=== PATIENT | female | born 1940 | race Caucasian/White ===

== ENCOUNTER → 2019-03-21 | Outpatient (CLI) | payer MEDICARE | END | disposition home or self-care (01) | LOC: RAH 10:59 | PROVIDERS: ATTEND Family Medicine | DX: E04.2 Nontoxic multinodular goiter (principal) | CPT/HCPCS: 76536 ==

== ENCOUNTER → 2020-03-30 | Outpatient (CLI) | payer MEDICARE | END | disposition home or self-care (01) | LOC: SHCH 08:35 | PROVIDERS: ATTEND Internal Medicine Cardiovascular Disease | DX: R55 Syncope and collapse (principal) | CPT/HCPCS: 93306; 93356 ==

== ENCOUNTER → 2020-04-06 | Outpatient (CLI) | payer MEDICARE ==
[~2020-04-06] MED LIST: REGADENOSON 0.4 MG/5 ML PF SYG IVP SCH
== END | disposition home or self-care (01) ==
LOC: SHCH 07:55
PROVIDERS: ATTEND Internal Medicine Cardiovascular Disease
DX: R55 Syncope and collapse (principal)
CPT/HCPCS: 78452; 93017; 96374; A9500 ×2; J2785

== ENCOUNTER → 2020-04-10 | Outpatient (CLI) | payer MEDICARE | END | disposition home or self-care (01) | LOC: RAH 10:59 | PROVIDERS: ATTEND Family Medicine | DX: E04.2 Nontoxic multinodular goiter (principal) | CPT/HCPCS: 76536 ==

== ENCOUNTER → 2020-04-27 | Outpatient (CLI) | payer MEDICARE ==
[2020-04-27 10:12] LABS: INR 0.94 (0.85-1.15); PARTIAL THROMBOPLASTIN TIME 28.1 SEC (26.3-35.5); PROTHROMBIN TIME 10.2 SEC (9.6-11.6)
--- NOTE | 2020-04-27 10:50 | NUR ---
US GUIDED FNA RIGHT THYROID NODULE PROCEDURE PERFORMED BY DR. UREÑA. PUNCTURE SITE RIGHT SIDE OF NECK. PATIENT TOLERATED PROCEDURE WELL. SPECIMEN X 4 COLLECTED BY LAB PERSONNEL, PETE. END OF PROCEDURE AT 1110. NEEDLE REMOVED AND DRESSING APPLIED. NO BLEEDING NOTED. DISCHARGE INSTRUCTIONS GIVEN TO PATIENT AND VERBALIZED UNDERSTANDING. DISCHARGED AMBULATORY. AAO X 3. NO C/O PAIN.
== END | disposition home or self-care (01) ==
LOC: RAH 09:02
PROVIDERS: ATTEND Family Medicine
DX: D44.0 Neoplasm of uncertain behavior of thyroid gland (principal); Z79.01 Long term (current) use of anticoagulants
CPT/HCPCS: 10005; 36415; 76942; 85610; 85730; 88173; 88305

== ENCOUNTER → 2021-04-30 | Outpatient (CLI) | payer MEDICARE | END | disposition home or self-care (01) | LOC: RAH 07:36 | PROVIDERS: ATTEND Family Medicine | DX: E04.2 Nontoxic multinodular goiter (principal) | CPT/HCPCS: 76536 ==

== ENCOUNTER → 2023-04-28 | Outpatient (CLI) | payer MEDICARE ==
[~2023-04-28] MED LIST changes: +ASPI-1012 PO; +IOHEXOL 350 MG/ML 100ML INFUS..BTL IV ONE; +LEVO750T68 PO; +METO-296 PO; +METR-172 PO; +METR375C2 PO; -REGADENOSON 0.4 MG/5 ML PF SYG IVP SCH
== END | disposition home or self-care (01) ==
LOC: RAH 10:00
PROVIDERS: ATTEND Family Medicine
DX: K57.30 Diverticulosis of large intestine without perforation or abscess without bleeding (principal); N28.1 Cyst of kidney, acquired; K59.00 Constipation, unspecified; D73.89 Other diseases of spleen; K76.89 Other specified diseases of liver; N32.89 Other specified disorders of bladder; M47.815 Spondylosis without myelopathy or radiculopathy, thoracolumbar region; Z96.641 Presence of right artificial hip joint
CPT/HCPCS: 74178; Q9967

== ENCOUNTER 2023-05-03 21:42 | Observation (INO) | payer MEDICARE ==
[~2023-05-03] VITALS: Ht 177.8 cm; Wt 92.5 kg
[2023-05-03] MEDS ORDERED: MORPHINE 4 MG SYG IVP ONE (22:30)
[2023-05-03] MEDS ORDERED: FAMOTIDINE 20MG VIAL IV ONE (22:30)
[2023-05-03] MEDS ORDERED: LACTATED RINGERS 1000ML 1,000 ML IV ONE (22:30)
[2023-05-03] MEDS ORDERED: METOCLOPRAMIDE 10 MG/2 ML VIAL IVP ONE (22:30)
[2023-05-03 22:42] LABS: BASOPHILS % (AUTO) 0.6 % (0.0-5.0); EOSINOPHILS % (AUTO) 5.4 % (0.0-8.0); LYMPHOCYTES % (AUTO) 10.1 % (21.0-51.0); MEAN CORPUSCULAR HEMOGLOBIN 33.1 pg (27.0-33.0); MEAN CORPUSCULAR VOLUME 103.4 fL (79-99); MONOCYTES % (AUTO) 6.9 % (3.0-13.0); NEUTROPHILS % (AUTO) 76.4 % (40.0-77.0); PLATELET COUNT (AUTO) 444 K/uL (130-400)
[2023-05-03 22:55] LABS: POTASSIUM 4.2 mmol/L (3.5-5.1)
[2023-05-03 23:01] LABS: ALBUMIN 3.3 g/dL (3.5-5.0); TOTAL PROTEIN, SERUM 6.6 g/dL (6.0-8.3)
[2023-05-03 23:15] LABS: APPEARANCE,URINE CLEAR (CLEAR); BILIRUBIN,URINE NEGATIVE (NEGATIVE); COLOR,URINE YELLOW (YELLOW); GLUCOSE, URINE (UA) NEGATIVE (NEGATIVE); KETONES,URINE NEGATIVE (NEGATIVE); LEUKOCYTE ESTERASE ,URINE 500 Leu/uL (NEGATIVE); NITRATE,URINE NEGATIVE (NEGATIVE); OCCULT BLOOD,URINE NEGATIVE (NEGATIVE); PH,URINE 7.5 (5.0-8.0); PROTEIN,URINE 20 mg/dL (NEGATIVE)
[2023-05-03 23:23] LABS: BACTERIA,URINE RARE /HPF (None Seen); MUCUS,URINE RARE LPF (None Seen); SQUAMOUS EPITHELIAL CELL,UR FEW /HPF (0-2); WBC,URINE >100 /HPF (0-1)
[2023-05-04] VITALS (7 sets, daily range): BP systolic 118–148; BP diastolic 55–74
[2023-05-04] MEDS ORDERED: ZOSYN 3.375GM +NS 50ML IVPB ONE
[2023-05-04] MEDS ORDERED: LACTATED RINGERS IV ONE
[2023-05-04] MEDS ORDERED: ONDANSETRON 4MG INJ IV PRN (01:30)
[2023-05-04] MEDS: ZOSYN 3.375GM +NS 50ML IVPB SCH ×3 (01:30→17:22)
[2023-05-04] MEDS ORDERED: LACTULOSE 20 GM/30 ML UDCUP PO PRN (01:30)
[2023-05-04] MEDS ORDERED: HYDRALAZINE 20MG/ML VIAL IV PRN (01:30)
[2023-05-04] MEDS ORDERED: GUAIFENESIN-DM 200/20 MG 10 ML PO PRN (01:30)
[2023-05-04] MEDS ORDERED: NITROGLYCERIN 0.4 MG SL TAB SL PRN (01:30)
[2023-05-04] MEDS: 0.9%NACL 50ML IV SCH ×3 (01:30→17:22)
[2023-05-04] MEDS ORDERED: MAG/ALUM/SIMETH 30 ML UDCUP PO PRN (01:30)
[2023-05-04] MEDS ORDERED: ACETAMINOPHEN 325 MG TAB PO PRN ×2 (01:30)
[2023-05-04] MEDS ORDERED: MORPHINE 4 MG SYG IM PRN (01:30)
[2023-05-04] MEDS: 0.9%NACL 1000ML 1,000 ML IV SCH ×3 (02:38→21:30)
[2023-05-04] MEDS ORDERED: ZOSYN 3.375GM+NS 50ML 50 ML IV SCH (05:00)
[2023-05-04] MEDS: FAMOTIDINE 20MG VIAL IV SCH ×2 (08:26→21:38)
[2023-05-04] MEDS: ENOXAPARIN SODIUM 40 MG/0.4 ML SYRINGE SQ SCH (08:27)
[2023-05-04 13:16] LABS: BASOPHILS % (AUTO) 0.8 % (0.0-5.0); EOSINOPHILS % (AUTO) 6.4 % (0.0-8.0); HEMATOCRIT 26.5 % (36-48); LYMPHOCYTES % (AUTO) 23.7 % (21.0-51.0); MEAN CORPUSCULAR HEMOGLOBIN 33.1 pg (27.0-33.0); MEAN CORPUSCULAR HGB CONC 31.3 g/dL (32.0-36.0); MEAN CORPUSCULAR VOLUME 105.6 fL (79-99); MONOCYTES % (AUTO) 9.1 % (3.0-13.0); NEUTROPHILS % (AUTO) 59.6 % (40.0-77.0); PLATELET COUNT (AUTO) 389 K/uL (130-400); RED BLOOD CELL COUNT(AUTO) 2.51 MIL/uL (4.00-5.50); RED CELL DISTRIBUTION WIDTH 16.1 % (11.0-15.5); WHITE BLOOD COUNT (AUTO) 7.7 K/uL (4.8-10.8)
[2023-05-04 13:25] LABS: HEMOGLOBIN A1C 5.7 % (4.0-6.0)
[2023-05-04 13:37] LABS: ALBUMIN 2.8 g/dL (3.5-5.0); CREATININE 1.1 mg/dL (0.5-1.5); POTASSIUM 4.1 mmol/L (3.5-5.1); TOTAL PROTEIN, SERUM 5.9 g/dL (6.0-8.3)
[2023-05-04] MEDS ORDERED: ASPI-1012 PO ×2 (14:42)
[2023-05-05] MEDS: ZOSYN 3.375GM +NS 50ML IVPB SCH ×3 (01:03→18:03)
[2023-05-05] MEDS: 0.9%NACL 50ML IV SCH ×3 (01:04→18:03)
[2023-05-05 02:24] VITALS: BP 140/70
[2023-05-05 04:39] LABS: BASOPHILS % (AUTO) 1.1 % (0.0-5.0); EOSINOPHILS % (AUTO) 7.5 % (0.0-8.0); HEMATOCRIT 25.4 % (36-48); LYMPHOCYTES % (AUTO) 25.9 % (21.0-51.0); MEAN CORPUSCULAR HEMOGLOBIN 33.1 pg (27.0-33.0); MEAN CORPUSCULAR HGB CONC 31.5 g/dL (32.0-36.0); MONOCYTES % (AUTO) 8.5 % (3.0-13.0); NEUTROPHILS % (AUTO) 56.5 % (40.0-77.0); PLATELET COUNT (AUTO) 370 K/uL (130-400); RED BLOOD CELL COUNT(AUTO) 2.42 MIL/uL (4.00-5.50); RED CELL DISTRIBUTION WIDTH 16.2 % (11.0-15.5); WHITE BLOOD COUNT (AUTO) 6.1 K/uL (4.8-10.8)
[2023-05-05 04:59] LABS: ALBUMIN 2.6 g/dL (3.5-5.0); CREATININE 1.2 mg/dL (0.5-1.5); MAGNESIUM 1.9 mg/dL (1.80-2.40); POTASSIUM 4.2 mmol/L (3.5-5.1); TOTAL PROTEIN, SERUM 5.6 g/dL (6.0-8.3)
[2023-05-05] MEDS: 0.9%NACL 1000ML 1,000 ML IV SCH ×2 (07:48→18:03)
[2023-05-05 07:50] VITALS: BP 135/75
[2023-05-05] MEDS: ENOXAPARIN SODIUM 40 MG/0.4 ML SYRINGE SQ SCH (08:46)
[2023-05-05] MEDS: FAMOTIDINE 20MG VIAL IV SCH ×2 (08:46→20:26)
[2023-05-05 11:45] VITALS: BP 151/70
[2023-05-05 16:31] VITALS: BP 152/76
[2023-05-05 19:26] VITALS: BP 152/71
[2023-05-05 22:05] VITALS: BP 151/70
[2023-05-06] MEDS: ZOSYN 3.375GM +NS 50ML IVPB SCH ×2 (01:16→08:55)
[2023-05-06] MEDS: 0.9%NACL 50ML IV SCH ×2 (01:16→08:55)
[2023-05-06 02:28] VITALS: BP 140/66
[2023-05-06] MEDS: 0.9%NACL 1000ML 1,000 ML IV SCH (04:08)
[2023-05-06 04:42] LABS: BASOPHILS % (AUTO) 0.8 % (0.0-5.0); EOSINOPHILS % (AUTO) 7.3 % (0.0-8.0); HEMATOCRIT 25.4 % (36-48); LYMPHOCYTES % (AUTO) 19.7 % (21.0-51.0); MEAN CORPUSCULAR HEMOGLOBIN 32.9 pg (27.0-33.0); MEAN CORPUSCULAR HGB CONC 31.5 g/dL (32.0-36.0); MEAN CORPUSCULAR VOLUME 104.5 fL (79-99); MONOCYTES % (AUTO) 9.9 % (3.0-13.0); PLATELET COUNT (AUTO) 373 K/uL (130-400); RED BLOOD CELL COUNT(AUTO) 2.43 MIL/uL (4.00-5.50); RED CELL DISTRIBUTION WIDTH 15.7 % (11.0-15.5); WHITE BLOOD COUNT (AUTO) 6.3 K/uL (4.8-10.8)
[2023-05-06 04:56] LABS: ALBUMIN 2.7 g/dL (3.5-5.0); CREATININE 1.1 mg/dL (0.5-1.5); POTASSIUM 4.3 mmol/L (3.5-5.1); TOTAL PROTEIN, SERUM 5.6 g/dL (6.0-8.3)
[2023-05-06 07:46] VITALS: BP 143/65
[2023-05-06] MEDS: FAMOTIDINE 20MG VIAL IV SCH (08:55)
[2023-05-06] MEDS: ENOXAPARIN SODIUM 40 MG/0.4 ML SYRINGE SQ SCH (08:56)
[2023-05-06] MEDS ORDERED: LEVO750T68 PO ×2 (11:20)
[2023-05-06] MEDS ORDERED: METR375C2 PO ×2 (11:21)
[2023-05-06 11:42] VITALS: BP 130/54
== END 2023-05-06 14:20 | disposition home or self-care (01) ==
LOC: EDH 21:42 → EDHIP 05-04 01:08 → WSH 05-04 03:38
PROVIDERS: ADMIT Internal Medicine Critical Care Medicine; ATTEND Internal Medicine Critical Care Medicine
DX: A41.9 Sepsis, unspecified organism (principal); K57.92 Diverticulitis of intestine, part unspecified, without perforation or abscess without bleeding; N39.0 Urinary tract infection, site not specified; I25.10 Atherosclerotic heart disease of native coronary artery without angina pectoris; Z87.442 Personal history of urinary calculi; Z90.710 Acquired absence of both cervix and uterus; Z96.643 Presence of artificial hip joint, bilateral; Z79.899 Other long term (current) drug therapy; Z98.890 Other specified postprocedural states
CPT/HCPCS: 96361 ×4; 96375; 99285; 84484 ×2; 80053 ×4; 83690; 85025 ×4; 87088; 81001; 36415 ×4; 74176; 93005; 96376 ×3; 96372 ×3; 96365; 96366 ×3; 83036; 83735 ×3; 87040 ×2; 71045; 93306; 93356; 84145; 76770; J7120 ×2; J3490 ×6; J2270; J2765; G0378 ×59; J7030 ×2; J2543 ×8; J1650 ×3

== ENCOUNTER 2023-05-09 07:19 | Emergency (ER) | payer MEDICARE ==
[~2023-05-09] VITALS: Ht 177.8 cm; Wt 94.3 kg
[~2023-05-09 07:19] MED LIST changes: -IOHEXOL 350 MG/ML 100ML INFUS..BTL IV ONE; -METO-296 PO; -METR-172 PO
[2023-05-09 08:27] LABS: BASOPHILS % (AUTO) 0.5 % (0.0-5.0); HEMATOCRIT 28.4 % (36-48); LYMPHOCYTES % (AUTO) 10.1 % (21.0-51.0); MEAN CORPUSCULAR HEMOGLOBIN 32.5 pg (27.0-33.0); MEAN CORPUSCULAR HGB CONC 32.4 g/dL (32.0-36.0); MEAN CORPUSCULAR VOLUME 100.4 fL (79-99); NEUTROPHILS % (AUTO) 74.9 % (40.0-77.0); PLATELET COUNT (AUTO) 444 K/uL (130-400); RED BLOOD CELL COUNT(AUTO) 2.83 MIL/uL (4.00-5.50); WHITE BLOOD COUNT (AUTO) 8.4 K/uL (4.8-10.8)
[2023-05-09] MEDS ORDERED: MORPHINE 4 MG SYG IVP ONE (08:30)
[2023-05-09] MEDS ORDERED: 0.9%NACL 1000ML 1,000 ML IV ONE (08:30)
[2023-05-09] MEDS ORDERED: FAMOTIDINE 20MG VIAL IV ONE (08:30)
[2023-05-09] MEDS ORDERED: METOCLOPRAMIDE 10 MG/2 ML VIAL IVP ONE (08:30)
[2023-05-09 08:40] LABS: CARBON DIOXIDE 25 mmol/L (21-32); CHLORIDE 106 mmol/L (101-111); CREATININE 1.1 mg/dL (0.5-1.5); GLOMERULAR FILTR. RATE CALC 49 mL/min (>90); GLUCOSE,RANDOM 106 mg/dL (70-105); POTASSIUM 3.8 mmol/L (3.5-5.1); SODIUM SERUM 140 mmol/L (136-145); UREA NITROGEN, BLOOD 8 mg/dL (7-18)
[2023-05-09 08:45] LABS: ALANINE AMINOTRANSFERASE 33 U/L (12-78); ASPARTATE AMINOTRANSFERASE 31 U/L (10-37); TOTAL PROTEIN, SERUM 6.1 g/dL (6.0-8.3)
[2023-05-09 08:46] LABS: LIPASE < 50 U/L (114-286)
[2023-05-09 08:56] LABS: APPEARANCE,URINE CLEAR (CLEAR); BILIRUBIN,URINE NEGATIVE (NEGATIVE); COLOR,URINE YELLOW (YELLOW); GLUCOSE, URINE (UA) NEGATIVE (NEGATIVE); KETONES,URINE NEGATIVE (NEGATIVE); LEUKOCYTE ESTERASE ,URINE 25 Leu/uL (NEGATIVE); NITRATE,URINE NEGATIVE (NEGATIVE); OCCULT BLOOD,URINE NEGATIVE (NEGATIVE); PROTEIN,URINE NEGATIVE (NEGATIVE); UROBILINOGEN,URINE 0.2 mg/dL (0.2-1.0)
[2023-05-09 09:14] LABS: MUCUS,URINE RARE LPF (None Seen); RBC,URINE 0-1 /HPF (0-1); SQUAMOUS EPITHELIAL CELL,UR RARE /HPF (0-2); WBC,URINE 0-1 /HPF (0-1)
[2023-05-09] MEDS ORDERED: IOHEXOL 350 MG/ML 100ML INFUS..BTL IV ONE (09:29)
[2023-05-09] MEDS ORDERED: METO-296 PO (11:37)
[2023-05-09] MEDS ORDERED: METR-172 PO (11:37)
[2023-05-09 11:50] VITALS: BP 143/61
[2023-05-09] MEDS ORDERED: METRONIDAZOLE 500 MG TABLET PO SCH (12:00)
== END 2023-05-09 11:56 | disposition home or self-care (01) ==
LOC: EDH 07:19
DX: K52.9 Noninfective gastroenteritis and colitis, unspecified (principal); M19.90 Unspecified osteoarthritis, unspecified site; Z79.82 Long term (current) use of aspirin; Z88.1 Allergy status to other antibiotic agents; Z90.49 Acquired absence of other specified parts of digestive tract; Z90.722 Acquired absence of ovaries, bilateral
CPT/HCPCS: 99285; 74178; 96374; 71045; 96361; 96375; 84484; 80053; 83690; 85025; 81001; 36415; 93005; J3490; J7030; J2765; Q9967

== ENCOUNTER → 2024-02-28 | Outpatient (CLI) | payer MEDICARE ==
[~2024-02-28] MED LIST changes: +ACET-2743 PO; -ASPI-1012 PO; +LACT1CAP69 PO; -LEVO750T68 PO; +MECO10005 PO; +MELO10CA3 PO; -METR375C2 PO; +MULT-1258 PO; +POLY17PO4 PO; +SENN-309 PO
== END | disposition home or self-care (01) ==
LOC: SHCH 10:57
PROVIDERS: ATTEND Internal Medicine Cardiovascular Disease
DX: I51.7 Cardiomegaly (principal); R01.0 Benign and innocent cardiac murmurs; R42 Dizziness and giddiness
CPT/HCPCS: 93306

== ENCOUNTER 2024-11-04 13:25 | Inpatient (IN) | payer MEDICARE ==
[~2024-11-04] VITALS: Ht 177.8 cm; Wt 93.9 kg
--- NOTE | 2024-11-04 14:02 | ERN ---
General Chief Complaint: Abnormal Labs Stated Complaint: ABN LABS D-DIMER ELEVATED Time Seen by MD: 13:27 History of Present Illness Initial Comments 84-year-old female presents to the ED for evaluation of abnormal labs. Patient was sent to the ED by heart clinic Dr. Lima after having labs done which showed elevated D-dimer. Patient denies any chest pain or shortness a breath at this time. Allergies: Coded Allergies: clindamycin (Unverified Allergy, Unknown, 04/03/20) indomethacin (Unverified Allergy, Unknown, 04/27/20) Home Meds No Active Prescriptions or Reported Meds Past Medical History Past Medical History: Anemia, Arthritis, Heart Disease Medical History Other: PROLAPSE UTERUS AND BLADDER, SPINAL STENOSIS Past Surgical History: Other Surgical History Other: OORPHERECTOMY, BILATERAL KNEE REPLACEMENT,R HIP REPLACEMENT Family History Family History: Negative Social History Social History: Negative, Lives with family ROS Dictation Constitutional: Negative for fever,chills, and weight loss Eyes: Negative for injury, pain,redness, and discharge ENT: Negative for injury,pain or swelling Cardiovascular: Negative for chest pain, palpitations, and edema Respiratory: Negative for shortness of breath, cough, and wheezing, Abdomen/GI: Negative for abdominal pain, nausea, vomiting, diarrhea, and constipation Back: Negative for injury and pain : Negative for injury, bleeding and discharge MS/Extremity: Negative for injury and deformity Skin: Negative for rash, and discoloration Neuro: Negative for headache, weakness, numbness, tingling, and seizure Psych: Negative for suicide ideation, homicidal ideation, and hallucinations Physical Exam Physical Exam Dictation General: awake, alert, NAD Head/Face: Normocephalic, atraumatic Eyes: PERRL, EOMI, vision at baseline ENT: oral cavity clear, TMs clear, no signs of infection Neck: Trachea midline, supple, no nuchal rigidity Cardiovascular: RRR, normal S1/S2, No MRGs, no JVD Respiratory: CTAB, no respiratory distress, No rales or wheezes Abdomen: Soft, non-tender, non-distended, normal bowel sounds, no guarding or rebound. Skin: Warm, dry, normal turgor, no rash MS/Extremity: Pulses equal, no cyanosis, neurovascular intact, FROM Neuro: COAx4, GCS 15, strength 5/5, CN 2-12 intact, normal cerebellar exam, normal gait, Psych: Normal behavior, mood, and affect normal Results Laboratory and Microbiology Lab and Micro Result Laboratory Tests Test 11/04/24 13:54 White Blood Count 6.0 K/uL (4.8-10.8) Red Blood Count 2.03 MIL/uL (4.00-5.50) L Hemoglobin 6.4 g/dL (12.0-16.0) *L Hematocrit 20.7 % (36-48) *L Mean Corpuscular Volume 102.0 fL (79-99) H Mean Corpuscular Hemoglobin 31.5 pg (27.0-33.0) Mean Corpuscular Hemoglobin Concent 30.9 g/dL (32.0-36.0) L Red Cell Distribution Width 22.6 % (11.0-15.5) H Platelet Count 541 K/uL (130-400) H Mean Platelet Volume 12.5 fL (7.5-10.5) H Immature Granulocyte % (Auto) 2.0 % (0-1) H Neutrophils (%) (Auto) 51.1 % (40.0-77.0) Lymphocytes (%) (Auto) 29.6 % (21.0-51.0) Monocytes (%) (Auto) 10.6 % (3.0-13.0) Eosinophils (%) (Auto) 6.0 % (0.0-8.0) Basophils (%) (Auto) 0.7 % (0.0-5.0) Neutrophils # (Auto) 3.1 K/uL (1.8-7.7) Lymphocytes # (Auto) 1.8 K/uL (1.0-4.8) Monocytes # (Auto) 0.6 K/uL (0.1-1.0) Eosinophils # (Auto) 0.36 K/uL (0.00-0.70) Basophils # (Auto) 0.04 K/uL (0.00-0.20) Absolute Immature Granulocyte (auto 0.12 K/uL (0-1) Nucleated Red Blood Cells 0.7 % (0.0-0.19) H Red Blood Cell Morphology See comments D-Dimer Quantitative (PE/DVT) 1048 ng/mL (0-500) *H Sodium Level 143 mmol/L (136-145) Potassium Level 4.2 mmol/L (3.5-5.1) Chloride Level 105 mmol/L (101-111) Carbon Dioxide Level 29 mmol/L (21-32) Blood Urea Nitrogen 23 mg/dL (7-18) H Creatinine 1.5 mg/dL (0.5-1.0) H Glomerular Filtration Rate Calc 34 mL/min (>90) Random Glucose 153 mg/dL (70-105) H Total Calcium 9.0 mg/dL (8.5-10.1) Labs Reviewed?: Yes EKG/XRAY/US/CT/MRI X-RAY Comment REASON: SOB ORDERING PHYSICIAN: SHALONDA EVANS MD PROCEDURE: CXR1VW - CHEST 1VW CHEST 1VW HISTORY: Shortness of breath COMPARISON: 09/21/2024 FINDINGS: A frontal projection of the chest was obtained. There are bilateral pulmonary infiltrates suggestive of pulmonary vascular congestion with possible superimposed pneumonitis. The heart is borderline enlarged. Degenerative changes are seen. Tortuosity of the aorta is seen. IMPRESSION: 1. Bilateral pulmonary infiltrates are seen suggestive of pulmonary vascular congestion with possible superimposed pneumonitis. DICTATED BY: CROW JEAN MD DATE: 11/04/241424 CT Scan Comment PATIENT: CHITRA PUGA MR#: [id number] : 1940 SEX: F AGE: 84 LOCATION: [facility] ORDER 53 STATUS: [facility] REPORT#: [id number] SERVICE 145 REASON: elevated ddimer ORDERING PHYSICIAN: SHALONDA EVANS MD PROCEDURE: CHES PE - CT CHEST PE PROTOCOL WWO CONT CT CHEST PE PROTOCOL WWO CONT HISTORY: Elevated d-dimer COMPARISON: 12/06/2023 TECHNIQUE: CT angiography of the chest was performed. The study was performed using angiographic technique with maximum intensity projection reconstruction images. Patient was given 100 cc of Omnipaque through intravenous route. FINDINGS: No CT evidence of filling defect is seen to suggest pulmonary embolus. No CT evidence of aortic dissection is seen. There is mild interstitial fibrosis. There is soft tissue filling defect noted within the ascending thoracic aorta measuring 2 cm x 1.5 cm posteriorly immediately below the aortic arch. Differential diagnosis would include thrombus with mass lesion not completely excluded. Clinical correlation is recommended. This was not definitely seen on previous study. No evidence of parenchymal disease is seen. No CT evidence of pleural effusion or pericardial effusion is seen. The heart is enlarged. A small hiatal hernia is seen. No evidence of adrenal mass is seen. Degenerative changes of the spine are noted. IMPRESSION: 1. No CT evidence of acute pulmonary embolus or aortic dissection is seen. There is soft tissue filling defect noted within the ascending thoracic aorta measuring 2 cm x 1.5 cm posteriorly immediately below the aortic arch. Differential diagnosis would include thrombus with mass lesion not completely excluded. Clinical correlation is recommended. This was not definitely seen on previous study. CT was performed with one or more following dose reduction techniques: automated exposure control, adjustment of the mA and kv according to patient's size, or use of a iterative reconstruction technique. DICTATED BY: CROW JEAN MD DATE: 11/04/241848 ELECTRONICALLY SIGNED BY: CROW JEAN MD DATE: 11/04/241899 [facility] MDM: Differential diagnosis: Elevated D-dimer, PE, NSTEMI 1899-patient care is being transferred to Dr. Reynolds Previous outside records reviewed: Old ER visits. Need for hospitalization: Patient does meet criteria for hospitalization. Need for emergency major/minor surgery: No Patient's prior external medical records from other ER visits were reviewed by me as indicated. Prior testing and results from previous visits were reviewed. Prior tests were taken into account with medical decision making and resource utilization, independent historian/historians were used to obtain complete medical history. I independently interpreted the test that were performed, results were reviewed by me and considered findings on radiology if ordered. Medical management and examination interpretation discussions were had by me with other qualified healthcare professionals as indicated for the patient's care. ED Course Orders Procedure Category Date Status Time 12 Lead Ekg Tracing- EKG 11/04/24 Complete Technical 13:39 Chest 1vw RAD 11/04/24 Resulted 13:39 D-Dimer LAB 11/04/24 Complete 13:39 Cbc With Differential LAB 11/04/24 Complete 13:39 Basic Metabolic Panel LAB 11/04/24 Complete 13:39 Type And Screen BBK 11/04/24 Complete 14:53 Occult Blood Stool LAB 11/04/24 Logged Single Only 14:54 Ct Chest Pe Protocol CT 11/04/24 Resulted Wwo Cont 14:53 0.9% Nacl 500ml PHA 11/04/24 In Process Iv.Soln (Ns 500ml 18:30 Iohexol (Omnipaque) PHA 11/04/24 Complete 18:29 Current Medications Medications (Trade) Dose Ordered Sig/Hang Route PRN Reason Start Time Stop Time Status Last Admin Dose Admin Iohexol (Omnipaque) 35,000 mg STK-MED ONCE IV 11/04/24 18:29 11/04/24 18:30 DC Sodium Chloride 500 ml @ 0 mls/hr Q0M IV 11/04/24 18:30 12/04/24 18:29 11/04/24 18:24 Vital Signs Date Time Temp Pulse Resp B/P (MAP) Pulse Ox O2 Delivery O2 Flow Rate FiO2 11/04/24 18:00 85 16 157/71 94 Room Air* 0 21 11/04/24 16:50 97.9 91 16 152/73 98 Room Air* 0 21 11/04/24 13:26 99.7 85 16 139/46 94 Room Air 0 7:00 p.m. patient is signed out to me by a.m. physician this is an 84-year-old female who was instructed to come to the emergency room from the [facility] as her labs revealed markedly abnormal D-dimer is a. Apparently patient began complaining of chest pain after she received iron infusions for severe anemia. During the workup incidental finding of increased D-dimer is a warranted further evaluation. She denied any shortness of breath. Vital signs as a bowel with a temperature of 99.7 Her chronic medical problems include anemia coronary artery disease, spinal stenosis Labs revealed a hemoglobin of 6.4 hematocrit of 20.7 BNP 7 showed a BUN and creatinine of 23 and 1.5. D-dimer is were 1048. After hydration a CT scan of the chest with PE protocol was done which was negative for pulmonary embolus however there was a soft tissue density noted in the aorta Recommend admission to the hospital for further evaluation including an echocardiogram and possibly ROSSI to better evaluate the intra-aortic density which could be a thrombus or a mass HEART Score Response (Comments) Value History: Moderate suspicion (+1) 1 Age: > 65yrs (+2) 2 Risk Factors: 1-2 risk factors (+1) 1 Initial Troponin: Normal limit (0) 0 HEART Score Risk: Mod Risk for MACE (4-6) Total 4 DX & DISP Disposition: Inpatient Decision to Admit Date: Nov 04, 2024 Decision to Admit Time: 19:19 Departure Impression: Primary Impression: Chest pain Additional Impressions: Thrombus of aorta, Severe anemia, Coronary artery disease Condition: Stable Scripts No Active Prescriptions or Reported Meds Additional Instructions: Patient was informed of all the diagnostic labs and procedures conducted in the emergency room today and demonstrated understanding of the results. I personally reviewed and interpreted all the diagnostic exams performed in the ER today. The patient will be admitted to the hospital for further treatment and evaluation. Disposition-admit to facility Condition-stable/guarded Course-uncertain at this time Pain status-decreased Assessment-exam unchanged Admission Certification- I certify that the patients status is appropriate and is based on my best clinical judgment and the patient's condition as documented in the medical records Referrals: ARTURO NGUYEN MD (PCP) SHALONDA EVANS MD Nov 04, 2024 14:02 LEBRON REYNOLDS MD Nov 04, 2024 19:24
[2024-11-04 14:04] LABS: BASOPHILS # (AUTO) 0.04 K/uL (0.00-0.20); BASOPHILS % (AUTO) 0.7 % (0.0-5.0); EOSINOPHILS # (AUTO) 0.36 K/uL (0.00-0.70); IMMATURE GRANULOCYTE ABSOLUTE 0.12 K/uL (0-1); LYMPHOCYTES # (AUTO) 1.8 K/uL (1.0-4.8); LYMPHOCYTES % (AUTO) 29.6 % (21.0-51.0); MEAN CORPUSCULAR HEMOGLOBIN 31.5 pg (27.0-33.0); MEAN CORPUSCULAR HGB CONC 30.9 g/dL (32.0-36.0); MONOCYTES # (AUTO) 0.6 K/uL (0.1-1.0); MONOCYTES % (AUTO) 10.6 % (3.0-13.0); NEUTROPHILS # (AUTO) 3.1 K/uL (1.8-7.7); NEUTROPHILS % (AUTO) 51.1 % (40.0-77.0); NUCLEATED RED BLOOD CELLS 0.7 % (0.0-0.19); PLATELET COUNT (AUTO) 541 K/uL (130-400); RED BLOOD CELL COUNT(AUTO) 2.03 MIL/uL (4.00-5.50); RED CELL DISTRIBUTION WIDTH 22.6 % (11.0-15.5)
[2024-11-04 14:15] LABS: HEMATOCRIT 20.7 % (36-48)
[2024-11-04 14:19] LABS: CREATININE 1.5 mg/dL (0.5-1.0); POTASSIUM 4.2 mmol/L (3.5-5.1)
--- NOTE | 2024-11-04 14:28 | HMCIMG ---
CHEST 1VW HISTORY: Shortness of breath COMPARISON: 09/21/2024 FINDINGS: A frontal projection of the chest was obtained. There are bilateral pulmonary infiltrates suggestive of pulmonary vascular congestion with possible superimposed pneumonitis. The heart is borderline enlarged. Degenerative changes are seen. Tortuosity of the aorta is seen. IMPRESSION: 1. Bilateral pulmonary infiltrates are seen suggestive of pulmonary vascular congestion with possible superimposed pneumonitis.
--- NOTE | 2024-11-04 15:42 | EKG ---
[facility] Test Date: 2024-11-04 Test Time: 13:34:08 Pat Name: CHITRA PUGA Department: [facility] Room: ED Gender: F Multimedia Assistant: [id number] : 1940 Requested By: SHALONDA EVANS Order Number: [id number] Reading MD: Rey Givens Measurements Intervals [place] Rate: 83 P: 19 WI: 169 QRS: -2 QRSD: 77 T: 45 QT: 378 QTc: 444 Interpretive Statements Sinus rhythm Compared to ECG 12/06/2023 03:47:41 No significant changes Electronically Signed On 11-04-2024 21:10:51 STEEL LOADER by Rey Givens Please click the below link to view image of tracing.
--- NOTE | 2024-11-04 18:22 | NUR ---
LABS REPORTED TO MD NATHAN MD; CT CONFIRMED, ORDERED 500ML BOLUS
[2024-11-04] MEDS: 0.9% NACL 500ML IV.SOLN 500 ML IV SCH (18:24)
[2024-11-04] MEDS ORDERED: IOHEXOL 350 MG/ML 100ML INFUS..BTL IV ONE (18:29)
--- NOTE | 2024-11-04 19:00 | HMCIMG ---
CT CHEST PE PROTOCOL WWO CONT HISTORY: Elevated d-dimer COMPARISON: 12/06/2023 TECHNIQUE: CT angiography of the chest was performed. The study was performed using angiographic technique with maximum intensity projection reconstruction images. Patient was given 100 cc of Omnipaque through intravenous route. FINDINGS: No CT evidence of filling defect is seen to suggest pulmonary embolus. No CT evidence of aortic dissection is seen. There is mild interstitial fibrosis. There is soft tissue filling defect noted within the ascending thoracic aorta measuring 2 cm x 1.5 cm posteriorly immediately below the aortic arch. Differential diagnosis would include thrombus with mass lesion not completely excluded. Clinical correlation is recommended. This was not definitely seen on previous study. No evidence of parenchymal disease is seen. No CT evidence of pleural effusion or pericardial effusion is seen. The heart is enlarged. A small hiatal hernia is seen. No evidence of adrenal mass is seen. Degenerative changes of the spine are noted. IMPRESSION: 1. No CT evidence of acute pulmonary embolus or aortic dissection is seen. There is soft tissue filling defect noted within the ascending thoracic aorta measuring 2 cm x 1.5 cm posteriorly immediately below the aortic arch. Differential diagnosis would include thrombus with mass lesion not completely excluded. Clinical correlation is recommended. This was not definitely seen on previous study. CT was performed with one or more following dose reduction techniques: automated exposure control, adjustment of the mA and kv according to patient's size, or use of a iterative reconstruction technique.
--- NOTE | 2024-11-04 19:00 | NUR ---
DURING CHANGE OF SHIFT. REPORT RECEIVED THAT PATIENT WAS NOT CONSENTING TO BLOOD TRANSFUSIONS AT THIS TIME UNTIL DR. PRESCOTT WAS MADE AWARE AND ADVISED PATIENT THAT A BLOOD TRANSFUSION WAS ADEQUATE TO HER PLAN OF CARE. DR. PRESCOTT IS PATIENT'S ONCOLOGIST THAT MANAGES HER ANEMIA OUTPATIENT. PATIENT IS ASYMPTOMATIC AT THIS TIME. VITAL SIGNS WITHIN LIMITS. PENDING ONCOLOGY CONSULT AT THIS TIME.
[2024-11-04] MEDS ORDERED: PoTASSium chloRIDE 20MEQ ER 20 MEQ ERTAB PO PRN (20:30)
[2024-11-04] MEDS ORDERED: MAGNESIUM 2GM PREMIX 50ML 50 ML IV PRN (20:30)
[2024-11-04] MEDS ORDERED: NITROGLYCERIN 0.4 MG SL TAB SL PRN (20:30)
[2024-11-04] MEDS ORDERED: ondanSETRON 4MG INJ IV PRN (20:30)
[2024-11-04] MEDS ORDERED: polyETHYLene GLYCol 3350 17 GM POWD.PACK PO PRN (20:30)
[2024-11-04] MEDS ORDERED: PoTASSium chloRIDE 20MEQ/100ML 100 ML IV PRN ×2 (20:30)
[2024-11-04] MEDS ORDERED: PoTASSium chl 10% ELIXIR 20MEQ 20 MEQ/15 ML UDCUP PO PRN (20:30)
[2024-11-04] MEDS ORDERED: acetaMINOPHEN 325 MG TAB PO PRN ×2 (20:30)
[2024-11-04] MEDS ORDERED: doCUSate SODIUM 100 MG CAP PO PRN (20:30)
[2024-11-04] MEDS: INSULIN humuLIN R 100 UNIT/ML 3ML SQ SCH (21:00)
--- NOTE | 2024-11-04 21:16 | HMCIMG ---
US VENOUS DOPPLER BILATERAL INDICATION: Swelling. Shortness of breath, lower extremity swelling and pain TECHNIQUE: Real-time venous Doppler ultrasound was performed using B mode, color flow and spectral analysis. FINDINGS: The visualized greater saphenous junction, common femoral, deep femoral, superficial femoral, popliteal and posterior tibial veins demonstrate normal compressibility and flow. No DVT is identified. IMPRESSION: No evidence of DVT in the visualized bilateral extremities.
[2024-11-04 21:23] LABS: HEMATOCRIT 20.9 % (36-48)
--- NOTE | 2024-11-04 21:30 | NUR ---
DAUGHTER, THAIS, REQUESTING TO BE CALLED TOMORROW 11/05/[address] STAFFORD CONSULTS ON THE PATIENT. #[phone]
[2024-11-05] MEDS: PANTOPrazole 40 MG/VIAL IVP SCH (00:09)
--- NOTE | 2024-11-05 06:29 | EKG ---
[facility] Test Date: 2024-11-04 Test Time: 20:51:52 Pat Name: CHITRA PUGA Department: [facility]IP Room: ED 19 Gender: F Screen Printing Supervisor: [id number] : 1940 Requested By: LEBRON STEVENSON Order Number: [id number] Reading MD: Kehinde Hobbs Measurements Intervals [place] Rate: 98 P: 38 ID: [id number] QRS: 11 QRSD: 78 T: 58 QT: 352 QTc: 450 Interpretive Statements Sinus rhythm Borderline prolonged ID interval Compared to ECG 11/04/2024 13:34:08 No significant changes Electronically Signed On 11-05-2024 20:52:37 CAMP TENDER by Kehinde Hobbs Please click the below link to view image of tracing.
[2024-11-05 07:05] LABS: BASOPHILS # (AUTO) 0.04 K/uL (0.00-0.20); BASOPHILS % (AUTO) 0.7 % (0.0-5.0); EOSINOPHILS # (AUTO) 0.44 K/uL (0.00-0.70); EOSINOPHILS % (AUTO) 7.7 % (0.0-8.0); IMMATURE GRANULOCYTE ABSOLUTE 0.13 K/uL (0-1); LYMPHOCYTES # (AUTO) 1.4 K/uL (1.0-4.8); MEAN CORPUSCULAR HEMOGLOBIN 31.6 pg (27.0-33.0); MEAN CORPUSCULAR HGB CONC 31.2 g/dL (32.0-36.0); MEAN CORPUSCULAR VOLUME 101.1 fL (79-99); MONOCYTES # (AUTO) 0.8 K/uL (0.1-1.0); MONOCYTES % (AUTO) 13.9 % (3.0-13.0); NEUTROPHILS # (AUTO) 2.9 K/uL (1.8-7.7); NEUTROPHILS % (AUTO) 50.4 % (40.0-77.0); PLATELET COUNT (AUTO) 450 K/uL (130-400); RED BLOOD CELL COUNT(AUTO) 1.87 MIL/uL (4.00-5.50); RED CELL DISTRIBUTION WIDTH 22.5 % (11.0-15.5); WHITE BLOOD COUNT (AUTO) 5.7 K/uL (4.8-10.8)
[2024-11-05] MEDS ORDERED: CEFTRIAXONE 2GM VIAL IVPB SCH (07:30)
[2024-11-05 07:34] LABS: CREATININE 1.4 mg/dL (0.5-1.0); POTASSIUM 4.6 mmol/L (3.5-5.1)
--- NOTE | 2024-11-05 07:36 | HP ---
[facility] HISTORY & PHYSICAL Date Patient Seen: Nov 05, 2024 Time of Visit: 07:36 Supervising Physician: Arnaud Jaime MD Primary Care Physician: Jaya Ortiz MD Outpatient Specialists: Dr Lima Inpatient Consults: Dr Manny Soto, Dr Cordoba PROBLEM LIST: Acute hypoxic respiratory failure, POA Acute on chronic anemia secondary to myelodysplastic syndrome,POA Thrombocytosis, POA, Thrombus vs mass lesion on descending aortic, POA Right lower community-acquired pneumonia, POA MOUSTAPHA on CKD stage III, POA Osteoarthritis Pulmonary fibrosis COPD Spinal stenosis status post lumbar laminectomy September of 2024 Obesity BMI of 29.4 HPI: This is the case of a 89-year-old female with a past medical history of COPD, pulmonary fibrosis, ulcer arthritis, myelodysplastic, heart disease recently had a lumbar laminectomy in [facility] and was sent to inpatient rehab for several weeks discharged approximately one week ago. She went to the heart clinic for follow up and was found to have an elevated D-dimer. She was sent to the emergency department for evaluation of possible PE. On arrival to the emergency department patient had a temperature 99.7 heart rate in the 80s respiratory rate of 16 blood pressure 139/46 with O2 sat of 94% on room air. Chest x-ray shows bilateral pulmonary infiltrates seen suggestive of pulmonary vascular congestion with possible superimposed pneumonitis. On CT of the chest per PE protocol there was no CT evidence of acute pulmonary embolism aortic dissection. There is soft tissue filling defect noted within the descending thoracic aorta measuring 2 cm x 1.5 cm posteriorly in weekly below the aortic arch. On ultrasound of both lower extremity no evidence of DVT. No evidence of abdominal aortic aneurysm seen on abdominal ultrasound. Remarkable labs for WBCs of 5.7 RBCs 1.87 hemoglobin of 6.4/20.7 with MCV of 102 MCHC 30.9 platelet count [id number], creatinine is 1.4 GFR of 37 with a BUN of 21. TIBC 181 % saturation 64. Patient's familiar with [employer] Dr. Greenfield for her myelodysplastic di sease and we are consulted for acute anemia. Per Hematology it is okay to anticoagulate if needed and we will transfuse 2 units of PRBCs. We will trend hemoglobin and hematocrit every 6 hours and transfuse 1 unit PRBCs for hemoglobin less than 7. We will consult cardiology and CV surgery for eval and recommendations. PPAST MEDICAL HX: Myelodysplastic syndrome Osteoarthritis Pulmonary fibrosis COPD Back pain PAST SURGICAL HX: Spinal stenosis status post lumbar laminectomy on 10/09/24 Bone marrow biopsy Oophorectomy Knee replacement Hip replacement SOCIAL HISTORY: No tobacco, ETOH, or illicit drug use Coded Allergies: clindamycin (Unverified Allergy, Unknown, 04/03/20) indomethacin (Unverified Allergy, Unknown, 04/27/20) REVIEW OF SYSTEMS: Const no fever, no weight changes yes for dyspnea on exertion Eyes:[ no recent vision problems] ENT: [No congestion, ear pain, or sore throat] C/V: [no chest pain, yes for palpitations or edema] Resp: [No cough, congestion, wheezing , yes for Shortness of breath] GI: [No abdominal pain, nausea, vomiting, constipation, or diarrhea] : [No incontinence of or dyuria] M/S: [No joint or pain swelling] Skin: [No rash], right 3rd toe with purple/brown ecchymosis ( per pt she bumped her toe) Neuro: [no headache, focal numbness, or weakness, dizziness or seizures] Psych: [no depression or anxiety] Heme: [no abnormal bruising or bleeding] Lymph: [no swollen glands] PHYSICAL EXAM: GENERAL: alert, weak, awake oriented x 3 HEENT: EOMI, Sclera non icteric, moist mucosa NECK: Supple, no JVD, trachea midline LUNGS: Clear breath sounds bilaterally. No wheezes HEART: Regular rate and rhythm. Normal S1 and S2, without murmurs ABD: Abdomen soft, nontender. Bowel sounds present EXT: No clubbing cyanosis, bilateral plus one pitting edema to lower extremities, right 3rd toe with brown/purple ecchymosis per patient she bumped it three days ago. NEURO: Alert and oriented to person, follows commands Vital Signs (last 8hr) Date Time Temp Pulse Resp B/P (MAP) Pulse Ox O2 Delivery O2 Flow Rate FiO2 11/05/24 04:05 98.4 76 17 149/58 97 Nasal Cannula* 2 28 11/05/24 02:41 98.1 78 20 122/48 94 Room Air* 0 21 LABS: Hematology Labs: Test 11/04/24 21:09 11/04/24 13:54 Range/Units Hemoglobin 6.5 *L 12.0-16.0 g/dL Hematocrit 20.9 *L 36-48 % White Blood Count 6.0 4.8-10.8 K/uL Red Blood Count 2.03 L 4.00-5.50 MIL/uL Mean Corpuscular Volume 102.0 H 79-99 fL Mean Corpuscular Hemoglobin 31.5 27.0-33.0 pg Mean Corpuscular Hemoglobin Concent 30.9 L 32.0-36.0 g/dL Red Cell Distribution Width 22.6 H 11.0-15.5 % Platelet Count 541 H 130-400 K/uL Mean Platelet Volume 12.5 H 7.5-10.5 fL Immature Granulocyte % (Auto) 2.0 H 0-1 % Neutrophils (%) (Auto) 51.1 40.0-77.0 % Lymphocytes (%) (Auto) 29.6 21.0-51.0 % Monocytes (%) (Auto) 10.6 3.0-13.0 % Eosinophils (%) (Auto) 6.0 0.0-8.0 % Basophils (%) (Auto) 0.7 0.0-5.0 % Neutrophils # (Auto) 3.1 1.8-7.7 K/uL Lymphocytes # (Auto) 1.8 1.0-4.8 K/uL Monocytes # (Auto) 0.6 0.1-1.0 K/uL Eosinophils # (Auto) 0.36 0.00-0.70 K/uL Basophils # (Auto) 0.04 0.00-0.20 K/uL Absolute Immature Granulocyte (auto 0.12 0-1 K/uL Nucleated Red Blood Cells 0.7 H 0.0-0.19 % Red Blood Cell Morphology See comments Chemistry Labs: Test 11/05/24 06:30 11/05/24 05:55 11/04/24 19:43 Range/Units Sodium Level 144 136-145 mmol/L Potassium Level 4.6 3.5-5.1 mmol/L Chloride Level 110 101-111 mmol/L Carbon Dioxide Level 29 21-32 mmol/L Blood Urea Nitrogen 21 H 7-18 mg/dL Creatinine 1.4 H 0.5-1.0 mg/dL Glomerular Filtration Rate Calc 37 >90 mL/min Random Glucose 93 70-105 mg/dL Total Calcium 8.5 8.5-10.1 mg/dL Iron Level 116 50-170 mcg/dL Total Iron Binding Capacity 181 L 250-450 mcg/dL Percent Iron Saturation 64.0 H 22-44 % Whole Blood Glucose 94 70-110 MG/DL Total Creatine Kinase 27 # 21-232 U/L Troponin I High Sensitivity 18.9 4-50 ng/L Coagulation Labs: Test 11/04/24 13:54 Range/Units D-Dimer Quantitative (PE/DVT) 1048 *H 0-500 ng/mL DIAGNOSTICS / RADIOLOGY RESULTS: IMAGING REPORT Signed PATIENT: CHITRA PUGA MR#: [id number] : 1940 SEX: F AGE: 84 LOCATION: [facility] ORDER 7 STATUS: ADM IN REPORT#: [id number] SERVICE 5 REASON: focus on abdominal aorta ORDERING PHYSICIAN: HOPE HURTADO PROCEDURE: AORTA - US AORTA LIMITED US AORTA LIMITED REASON: focus on abdominal aorta. COMPARISON: None TECHNIQUE: Limited abdominal aorta ultrasound study was performed. FINDINGS: Possible portion of abdominal aorta measures 2.6 x 2.5 cm, midportion measures 2.1 x 2.1 cm and distal portions measures 1.7 x 1.8 cm. Right common iliac artery measures 0.4 x 1.3 cm. Left common iliac artery measures 1.3 x 1.2 cm. IMPRESSION: No evidence of abdominal aortic aneurysm is seen. DICTATED BY: CROW JEAN MD DATE: 11/05/24 1136 ELECTRONICALLY SIGNED BY: CROW JEAN MD DATE: 11/05/24 1140 PATIENT: CHITRA PUGA MR#: [id number] : 1940 SEX: F AGE: 84 LOCATION: [facility] ORDER 07 STATUS: ADM IN REPORT#: [id number] SERVICE 03 REASON: shortness of breath, lower extremity swelling and pain ORDERING PHYSICIAN: LEBRON STEVENSON MD PROCEDURE: VENOUS ABIGAIL - US VENOUS DOPPLER BILATERAL US VENOUS DOPPLER BILATERAL INDICATION: Swelling. Shortness of breath, lower extremity swelling and pain TECHNIQUE: Real-time venous Doppler ultrasound was performed using B mode, color flow and spectral analysis. FINDINGS: The visualized greater saphenous junction, common femoral, deep femoral, superficial femoral, popliteal and posterior tibial veins demonstrate normal compressibility and flow. No DVT is identified. IMPRESSION: No evidence of DVT in the visualized bilateral extremities. DICTATED BY: MARI KEVIN MD DATE: 11/04/242113 ELECTRONICALLY SIGNED BY: MARI KEVIN MD DATE: 11/04/242115 IMAGING REPORT Signed PATIENT: CHITRA PUGA MR#: [id number] : 1940 SEX: F AGE: 84 LOCATION: [facility] ORDER 1340 STATUS: [facility] REPORT#: [id number] SERVICE 1339 REASON: SOB ORDERING PHYSICIAN: SHALONDA EVANS MD PROCEDURE: CXR1VW - CHEST 1VW CHEST 1VW HISTORY: Shortness of breath COMPARISON: 09/21/2024 FINDINGS: A frontal projection of the chest was obtained. There are bilateral pulmonary infiltrates suggestive of pulmonary vascular congestion with possible superimposed pneumonitis. The heart is borderline enlarged. Degenerative changes are seen. Tortuosity of the aorta is seen. IMPRESSION: 1. Bilateral pulmonary infiltrates are seen suggestive of pulmonary vascular congestion with possible superimposed pneumonitis. DICTATED BY: CROW JEAN MD DATE: 11/04/241424 ELECTRONICALLY SIGNED BY: CROW JEAN MD DATE: 11/04/241427 PLAN Admit to PCCU NEURO: Minimize central acting medications as possible. Maintain fall precautions, adequate lighting during the day PULMONARY: Supplemental 02 as needed. Maintain aspiration precautions at all times Maintain O2 sats above 92% CARDIOVASCULAR: Follow hemodynamics. Vital signs per facility protocol Consult cardiology Consult CV surgery Heparin drip per protocol Telemetry monitoring GI & NUTRITION: Continue with nutritional support. Continue stool softeners and laxatives as needed. Heart healthy diet KIDNEYS & ELECTROLYTES: Strict monitoring of intake, output and overall fluid balance. Avoid nephrotoxic medications to the extent possible. Medications to be dosed according to renal function. Monitor electrolytes and replace as needed ENDOCRINE: Maintain blood glucose between 100-180 at all times. Hypoglycemia protocol in place INFECTIOUS DISEASE: Trend temperature, WBC and procalcitonin level Follow cultures, deescalate antibiotics as soon as possible. Panculture if new onset fever Cover for community-acquired pneumonia empirically Doxycycline Rocephin ONCOLOGY/HEMATOLOGY/COAGULATION: Monitor for s/s of bleeding Monitor hemoglobin, coagulation studies as needed SKIN: Pressure ulcer prevention per facility protocol Specialty mattress ORTHO/REHAB: Continue PT/OT Prophylaxis: Continue GI and DVT prophylaxis Code Status: Full Resuscitation Disposition: PCCU Other: Total patient care time exceeds 60 minutes excluding all procedures. HOPE HURTADO [facility] Nov 05, 2024 07:36
[2024-11-05 07:50] LABS: HEMATOCRIT 18.9 % (36-48)
[2024-11-05] MEDS: DOXYCYCLINE 100MG+NS 250ML 250 ML IV SCH (10:05)
[2024-11-05] MEDS: ZOSYN 3.375GM +NS 50ML IV SCH (10:05)
--- NOTE | 2024-11-05 10:59 | NUR ---
PT AND DAUGHTER ARE HAVING CONCERNS, BOTH REQUESTING TO SPEAK TO LISA EVANS OR HOPE FRAUSTO THEY ARE WANTING TO KNOW WHY PT IS RECIEVING ANTIBIOTICS, PAGED HOPE FRAUSTO, INSTRUCTED ME TO HOLD ABX FOR NOW TILL SHE SPEAKS TO PT AND FAMILY.
--- NOTE | 2024-11-05 11:40 | HMCIMG ---
US AORTA LIMITED REASON: focus on abdominal aorta. COMPARISON: None TECHNIQUE: Limited abdominal aorta ultrasound study was performed. FINDINGS: Possible portion of abdominal aorta measures 2.6 x 2.5 cm, midportion measures 2.1 x 2.1 cm and distal portions measures 1.7 x 1.8 cm. Right common iliac artery measures 0.4 x 1.3 cm. Left common iliac artery measures 1.3 x 1.2 cm. IMPRESSION: No evidence of abdominal aortic aneurysm is seen.
--- NOTE | 2024-11-05 11:51 | NUR ---
PT STATES SHE WANTS TO WAIT TO DO SWABS THAT ARE ORDERED, PT WANTS TO SPEAK WITH HOPE FRAUSTO OR DR. EVANS, PT WILL WAIT TO SEE IF COVID/ FLU/ AND STREP ARE NECESSARY, WILL HOLD FOR NOW WAITING ON ORDERS.
--- NOTE | 2024-11-05 12:05 | NUR ---
ASKED DAUGHTER FOR HOME MEDICATIONS, STATES IS WAITING TO SPEAK TO DOCTOR, THEN SHE WILL HORSE BREAKER MEDICATIONS FROM PT HOME WILL BRING LATER.
--- NOTE | 2024-11-05 12:23 | NUR ---
DR PRESCOTT ROUNDED SPOKE TO PT AND HER DAUGHTER INFORMED THEM PT WILL NEED A PET SCAN, I INFORMED PT AND DAUGHTER PET SCAN IS NOT DONE HERE IN THIS HOSPITAL ,PT WILL F/U WITH DR. IBRAHIM OFFICE WILL BE DONE OUTPT.
--- NOTE | 2024-11-05 12:25 | NUR ---
PER DR. PRESCOTT PT CAN EAT. [id number]
[2024-11-05] MEDS ORDERED: HEParin 25,000 UNITS/250ML D5W 250 ML IV SCH (12:30)
[2024-11-05 13:31] LABS: INR 0.98 (0.85-1.15)
[2024-11-05 13:32] LABS: PARTIAL THROMBOPLASTIN TIME 27.7 SEC (26.3-35.5)
[2024-11-05 13:46] LABS: HEMATOCRIT 20.9 % (36-48)
--- NOTE | 2024-11-05 13:46 | CONS ---
REFERRING PHYSICIAN: Arnaud Jaime MD REASON FOR CONSULTATION: Myelodysplastic syndrome and anemia. HISTORY OF PRESENT ILLNESS: An 84-year-old woman who has got myelodysplastic state, has been on erythropoietin. She had a complicated history. She had a lumbar laminectomy by pain management and sent to inpatient rehab for several weeks and ultimately went home. She went to [facility], saw Dr. Lima, found to have an elevated D-dimer, immediately sent her to the ER for possible PE. She has had no chest pain, no shortness of breath. PAST MEDICAL HISTORY: Myelodysplastic syndrome, arthritis, heart disease. PAST SURGICAL HISTORY: Prolapsed bladder, spinal stenosis, bone marrow biopsy, oophorectomy, knee replacement, hip replacement. MEDICATIONS: See intake sheet. ALLERGIES: CLINDAMYCIN, INDOMETHACIN. FAMILY HISTORY: Negative for blood dyscrasia. SOCIAL HISTORY: Single, [place]. Does not smoke or drink. REVIEW OF SYSTEMS: CONSTITUTIONAL: Negative for fevers or sweats. HEENT: Negative for blurred vision. CARDIOVASCULAR: Negative for chest pain, palpitation, PND. PULMONARY: Negative for shortness of breath. GASTROINTESTINAL: Negative. Bowel sounds are heard. GENITOURINARY: Denies any hematuria or dysuria. PHYSICAL EXAMINATION: GENERAL: Shows a pleasant elderly woman. VITAL SIGNS: Blood pressure currently 145/56, heart rate 77, respirations 17. HEENT: Benign. CHEST: Clear. ABDOMEN: Soft. EXTREMITIES: No edema. NEUROLOGIC: Awake and oriented. LABORATORY DATA: Reviewed. Hemoglobin is down to 6.4. IMAGING: CT of the chest shows no pulmonary embolism. She has a clot possibly in the aorta. IMPRESSION: * Myelodysplastic syndrome with recurrent anemia, no evidence of bleeding. * Possible clot in the aorta, no evidence of pulmonary embolism or coronary artery disease. Other problems as listed. PLAN: Transfuse 2 units of packed cells. Continue her other medications. Workup for possible blood clot. If you need to anticoagulate her, I think that is reasonable. TID: [id number] RECEIPT: [id number]
[2024-11-05] MEDS: HEParin 25,000 UNITS/250ML D5W 250 ML IV SCH (14:40)
[2024-11-05] MEDS: HEParin 5,000 UNIT VIAL SQ ONE (14:48)
--- NOTE | 2024-11-05 15:31 | CONS ---
[facility] CARDIOLOGY CONSULTATION REPORT Cardiology consultation note dictated for Bernardino Larose MD Primary door furring installer: Arley Lima MD Date Patient Seen: Nov 05, 2024 Requesting Physician: Agnieszka Linda CNP Reason for Consultation: Possible aortic thrombus History of Present Illness: This is an 84-year-old female with a past medical history of dyslipidemia, syncope, undocumented history of elevated CT coronary calcium score in [place], negative Cardiolite stress test in 2019, mild aortic stenosis and LV outflow obstruction by 2D echo in 02/2024, myelodysplastic syndrome, chronic anemia, and recent lumbar laminectomy in 09/2024 who presented to the ED at the request of Dr. Lima due to an elevated D-dimer of 1155. Laboratories drawn on admission demonstrated a D-dimer of 1048, Hemoglobin of 6.4 and a hematocrit of 20.7. This morning, the patient's hemoglobin was 5.9 with a hematocrit of 18.9, she is pending 2 units of PRBCs to be transfused. CTA of the chest was negative for pulmonary embolism, but demonstrated a soft tissue filling defect within the ascending thoracic aorta measuring 2cm x 1.5cm which cannot exclude a thrombus with mass lesion. Cardiology has been consulted for recommendations. An ultrasound of the aorta found no evidence of abdominal aortic aneurysm. Bilateral lower extremities were negative for DVT. The patient currently denies chest pain, chest pressure, palpitations, dizziness, fever, cough, nausea, or vomiting. Past Medical History: As per HPI and summarized below Past Surgical History: Prolapse bladder repair Spinal stenosis with laminectomy 09/2024 Bone marrow biopsy Oophorectomy Knee replacement Hip replacement Family History: Noncontributory Social History: The patient lives with her . Habits: The patient denies alcohol, tobacco, or illicit drug use. Home Meds: Imdur 30 mg daily Lasix 20 mg daily Amlodipine 10 mg daily Current Meds: Current Medications Medications Dose Ordered Sig/Hang Start Time Stop Time Status Last Admin Sodium Chloride 500 ml @ 0 mls/hr Q0M 11/04/24 18:30 12/04/24 18:29 11/04/24 18:24 Potassium Chloride 100 ml @ 50 mls/hr AD PRN 11/04/24 20:30 12/04/24 20:29 Potassium Chloride 20 meq AD PRN 11/04/24 20:30 12/04/24 20:29 Potassium Chloride 20 meq AD PRN 11/04/24 20:30 12/04/24 20:29 Magnesium Sulfate 50 ml @ 0 mls/hr PROTOCOL PRN 11/04/24 20:30 12/04/24 20:29 Acetaminophen 650 mg Q6H PRN 11/04/24 20:30 12/04/24 20:29 Acetaminophen 650 mg Q4H PRN 11/04/24 20:30 12/04/24 20:29 Ondansetron HCl 4 mg Q6H PRN 11/04/24 20:30 12/04/24 20:29 Nitroglycerin 0.4 mg PROTOCOL PRN 11/04/24 20:30 12/04/24 20:29 Docusate Sodium 100 mg BID PRN 11/04/24 20:30 12/04/24 20:29 Polyethylene Glycol 17 gm DAILY PRN 11/04/24 20:30 12/04/24 20:29 Insulin Human Regular INSULIN SLIDING SCAL... ACHS 11/04/24 21:00 12/04/24 20:59 Pantoprazole Sodium 40 mg BID 11/04/24 21:00 12/04/24 20:59 11/05/24 09:00 Doxycycline Hyclate 250 ml @ 125 mls/hr Q12H 11/05/24 07:30 11/15/24 07:29 11/05/24 12:58 Piperacillin Sod/ Tazobactam Sod 3.375 gm Q12H 11/05/24 08:00 11/15/24 07:59 11/05/24 12:58 Heparin Sodium/ Dextrose 250 ml @ 0 mls/hr PROTOCOL 11/05/24 13:00 12/05/24 12:59 11/05/24 14:40 Review of Systems: CONST: No fever, fatigue, or weight changes. EYES: No recent vision problems. ENT: No congestion, ear pain, or sore throat. C/V: No chest pain, or palpitations. Admits to bilateral lower extremity edema since 09/2024 RESP: No cough, congestion, wheezing or shortness of breath. GI: No abdominal pain, nausea, vomiting, constipation, or diarrhea. : No incontinence or dysuria. SKIN: No rash. NEURO: No headache, focal numbness or weakness, dizziness, or seizures. PSYCH: No depression or anxiety. HEME: No abnormal bruising or bleeding. LYMPH: No swollen glands. Physical Examination: GENERAL: No acute distress. HEAD: Normal with no signs of head trauma. EYES: PERRLA, EOMI, conjunctiva and sclera normal. ENT: Hearing grossly intact, normal oropharynx. NECK: Supple without JVD. There is no tenderness, lymphadenopathy, or masses. No thyromegaly. LUNGS: Clear breath sounds bilaterally. No wheezes, or rhonchi. HEART: Normal rate and rhythm. 2/6 SANTOS that radiates to the carotids VASC: Left DP pulse 2 +. Unable to palpate a right DP pulse. ABD: Bowel sounds normal, soft, nontender, no masses, no organomegaly. No audible bruits. : Not examined LYMPH: No lymphadenopathy noted. EXT: No clubbing or cyanosis. BLE with brown discoloration and 2 to 3+ pitting edema. SKIN: No rashes or lesions noted. Right 3rd toe ulcer less than 1-week-old. NEURO: Awake, alert, and oriented x3. No focal sensory or strength deficits noted. Vital Signs (last 8hr) Date Time Temp Pulse Resp B/P (MAP) Pulse Ox O2 Delivery O2 Flow Rate FiO2 11/05/24 12:16 98.4 76 17 144/57 95 Room Air* 0 21 11/05/24 08:24 98.4 77 17 145/56 92 Nasal Cannula* 2 28 11/05/24 07:35 Nasal Cannula* 2 Laboratory: Hematology Labs: Test 11/05/24 13:13 11/05/24 06:30 11/04/24 13:54 Range/Units Hemoglobin 6.5 *L 12.0-16.0 g/dL Hematocrit 20.9 *L 36-48 % White Blood Count 5.7 4.8-10.8 K/uL Red Blood Count 1.87 L 4.00-5.50 MIL/uL Mean Corpuscular Volume 101.1 H 79-99 fL Mean Corpuscular Hemoglobin 31.6 27.0-33.0 pg Mean Corpuscular Hemoglobin Concent 31.2 L 32.0-36.0 g/dL Red Cell Distribution Width 22.5 H 11.0-15.5 % Platelet Count 450 H 130-400 K/uL Mean Platelet Volume 12.7 H 7.5-10.5 fL Immature Granulocyte % (Auto) 2.3 H 0-1 % Neutrophils (%) (Auto) 50.4 40.0-77.0 % Lymphocytes (%) (Auto) 25.0 21.0-51.0 % Monocytes (%) (Auto) 13.9 H 3.0-13.0 % Eosinophils (%) (Auto) 7.7 0.0-8.0 % Basophils (%) (Auto) 0.7 0.0-5.0 % Neutrophils # (Auto) 2.9 1.8-7.7 K/uL Lymphocytes # (Auto) 1.4 1.0-4.8 K/uL Monocytes # (Auto) 0.8 0.1-1.0 K/uL Eosinophils # (Auto) 0.44 0.00-0.70 K/uL Basophils # (Auto) 0.04 0.00-0.20 K/uL Absolute Immature Granulocyte (auto 0.13 0-1 K/uL Nucleated Red Blood Cells 0.0 0.0-0.19 % Red Blood Cell Morphology See comments Chemistry Labs: Test 11/05/24 13:35 11/05/24 06:30 11/04/24 19:43 Range/Units Whole Blood Glucose 127 H 70-110 MG/DL Sodium Level 144 136-145 mmol/L Potassium Level 4.6 3.5-5.1 mmol/L Chloride Level 110 101-111 mmol/L Carbon Dioxide Level 29 21-32 mmol/L Blood Urea Nitrogen 21 H 7-18 mg/dL Creatinine 1.4 H 0.5-1.0 mg/dL Glomerular Filtration Rate Calc 37 >90 mL/min Random Glucose 93 70-105 mg/dL Total Calcium 8.5 8.5-10.1 mg/dL Iron Level 116 50-170 mcg/dL Total Iron Binding Capacity 181 L 250-450 mcg/dL Percent Iron Saturation 64.0 H 22-44 % Total Creatine Kinase 27 # 21-232 U/L Troponin I High Sensitivity 18.9 4-50 ng/L Coagulation Labs: Test 11/05/24 13:13 11/04/24 13:54 Range/Units Prothrombin Time 11.0 9.6-11.6 SEC Prothromb Time International Ratio 0.98 0.85-1.15 Activated Partial Thromboplast Time 27.7 26.3-35.5 SEC D-Dimer Quantitative (PE/DVT) 1048 *H 0-500 ng/mL Diagnostics / Radiology: Impression and Plan: 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 Myelodysplastic syndrome Chronic anemia, Hgb 5.9/Hct 18.9 Elevated D-dimer of 1048, BLE negative for DVT, CTA negative for PE Dyslipidemia Hx of syncope Undocumented history of elevated CT coronary calcium score in [place] Negative Cardiolite stress test in 2019 Mild aortic stenosis and LV outflow obstruction by 2D echo in 02/2024 Recent lumbar laminectomy in 09/2024 Ascending thoracic aorta soft tissue filling defect measuring 2cm x 1.5cm, cannot exclude a thrombus with mass lesion Echocardiogram pending to be read, further recommendations to follow ATTESTATION BY PHYSICIAN I have seen and examined the patient, reviewed the above documentation, participated in medical decision making, made necessary modifications, and agree with the treatment plan as documented by my mid-level provider above. Patient has a questionable thrombotic defect in her aorta, but with myelodysplastic syndrome and severe anemia and generally poor candidacy for surgery I do not think there is a point in recommending transesophageal echo or other further imaging studies as the only treatment appropriate would be anticoagulation as guided by manager support. MD MANJULA Da Silva VALERIE L FNP Nov 05, 2024 15:31 BERNARDINO LAROSE MD Nov 05, 2024 19:50
[2024-11-05] MEDS ORDERED: FURO20TA4 PO (15:54)
[2024-11-05] MEDS ORDERED: ISOS30TA92 PO (15:55)
[2024-11-05] MEDS ORDERED: DOCU-116 PO (15:58)
[2024-11-05] MEDS ORDERED: MULT-1290 PO (15:58)
[2024-11-05] MEDS ORDERED: CYAN-35 PO (15:58)
[2024-11-05] MEDS ORDERED: POLY17PO4 PO (15:58)
[2024-11-05 17:32] LABS: RAPID GROUP A STREP negative (NEGATIVE)
[2024-11-05 17:42] LABS: COVID19 (SARS ANTIGEN RAPID) PRESUMPTIVE NEGATIVE (NEGATIVE); INFLUENZA TYPE A Negative For Type A (NEGATIVE); INFLUENZA TYPE B Negative For Type B (NEGATIVE)
--- NOTE | 2024-11-05 20:24 | HMCSR ---
APPROVED REPORT EXAM: Two-dimensional and M-mode echocardiogram with Doppler and color Doppler. INDICATION ICD: Chest Pain 2D Dimensions RVDd4.6 cmLVEF(%)67.9 (>50%)LVED Vol(simp.)129.0 mL IVSd1.1 (0.7-1.1cm)FS(%)38 %LVES Vol(simp.)50.0 mL LVDd5.0 (3.8-5.6cm)LA (2D)4.4 (1.6-4.0cm)LVEF(%, simp.)61 % PWd1.2 (0.7-1.1cm)Ao Root(2D)3.8 (2.0-3.7cm)LA ESV INDEX (4CH)62.00 mL/m2 IVSs1.5 cmLVOT diam2.0 (1.8-2.4cm)LA ESV INDEX (2CH)43.70 mL/m2 LVDs3.1 (2.5-4.0cm)IVC diam2.1 cmLA ESV INDEX (BP)55.90 mL/m2 PWs1.7 cm Aortic Valve AoV Vmax2.9 m/Devan Peak GR34.0 mmHgLVOT VTI0.26 m AoV VTI0.7 mAo Mean GR20.0 mmHgAVA (VTI) 1.1 cm2 MARTÍNEZ (VMAX)1.1 cm2 Mitral Valve MV E Pqzk364.5 cm/sDECEL Ncao311 ms MV A Orwu121.2 cm/sP 1/2 T96 ms E/A ratio0.8MVA (PHT)2.3 cm2 MR Max PG44 mmHg TDI E/E' Lfjrmp01.2E/E' Jnrcpmy40.9 Medial E' Peak V5.30 cm/sLateral E' Peak V5.90 cm/s Pulmonary Valve PV VTI0.34 mPV Mean GR6 mmHg Tricuspid Valve TR Vmax1.4 m/sRAP (EST) 8 oyBuVFRB15.0 mmHg TR Peak GR7.0 mmHg Left Ventricle The left ventricle is normal size. There is normal LV segmental wall motion. Borderline concentric le ft ventricular hypertrophy. The LVEF is > 55%. Stage I diastolic dysfunction. Right Ventricle The right ventricle is moderately dilated. The right ventricular systolic function is normal. Atria The left atrium is severely dilated. LASVI 56mL/m. The right atrium is mildly dilated. Aortic Valve The aortic valve is mildly thickened. Aortic valve is trileaflet. Trivial aortic regurgitation is pre sent. There is mild to moderate Calculated aortic valve area is 1.1 cm2 with maximum pressure gradien t of 34 mmHg and mean pressure gradient of 20 mmHg. aortic stenosis. Mitral Valve Anterior mitral valve leaflet is mildy prolapsed. Mitral valve leaflets open well. There is trace of mitral valve regurgitation noted. There is no mitral valve stenosis. Tricuspid Valve The tricuspid valve is normal in structure. There is no tricuspid valve regurgitation noted. Pulmonic Valve The pulmonary valve is normal in structure. There is no pulmonic valvular regurgitation. Great Vessels The aortic root is normal in size. The IVC is normal in size and collapses <50% with inspiration. Pericardium There is no pericardial effusion. Other Information Quality : Fair Conclusion The LVEF is > 55%. Borderline concentric left ventricular hypertrophy. Stage I diastolic dysfunction. The left atrium is severely dilated. LASVI 56mL/m. There is mild to moderate Calculated aortic valve area is 1.1 cm2 with maximum pressure gradient of 34 mmHg and mean pressure g radient of 20 mmHg. aortic stenosis.
--- NOTE | 2024-11-05 21:00 | NUR ---
DECREASED HEPARIN DRIP TO 15units/kg/hr with PTT of 130.5 after 6hrs post initiation will redraw PTT at 2.00
[2024-11-05 21:06] LABS: HEMATOCRIT 24.2 % (36-48)
[2024-11-05 21:15] LABS: INR 0.99 (0.85-1.15); PROTHROMBIN TIME 11.1 SEC (9.6-11.6)
[2024-11-05 21:41] LABS: PARTIAL THROMBOPLASTIN TIME 130.5 SEC (26.3-35.5)
--- NOTE | 2024-11-06 00:29 | HMCIMG ---
CHEST 1VW HISTORY: Hypoxia COMPARISON: 11/04/2024 FINDINGS: A frontal projection of the chest was obtained. Mild bilateral pulmonary infiltrates are seen may be related to mild pulmonary vascular congestion with possible superimposed pneumonitis. The heart is borderline enlarged. Degenerative changes are seen. Aortic calcifications are seen. IMPRESSION: 1. Mild bilateral pulmonary infiltrates are seen may be related to mild pulmonary vascular congestion with possible superimposed pneumonitis.
[2024-11-06 02:06] LABS: BASOPHILS # (AUTO) 0.04 K/uL (0.00-0.20); BASOPHILS % (AUTO) 0.6 % (0.0-5.0); EOSINOPHILS # (AUTO) 0.53 K/uL (0.00-0.70); EOSINOPHILS % (AUTO) 7.9 % (0.0-8.0); HEMATOCRIT 23.4 % (36-48); IMMATURE GRANULOCYTE ABSOLUTE 0.11 K/uL (0-1); LYMPHOCYTES # (AUTO) 1.6 K/uL (1.0-4.8); LYMPHOCYTES % (AUTO) 23.8 % (21.0-51.0); MEAN CORPUSCULAR HEMOGLOBIN 29.6 pg (27.0-33.0); MEAN CORPUSCULAR HGB CONC 32.1 g/dL (32.0-36.0); MEAN CORPUSCULAR VOLUME 92.5 fL (79-99); MONOCYTES # (AUTO) 0.9 K/uL (0.1-1.0); MONOCYTES % (AUTO) 12.8 % (3.0-13.0); NEUTROPHILS # (AUTO) 3.6 K/uL (1.8-7.7); NEUTROPHILS % (AUTO) 53.3 % (40.0-77.0); NUCLEATED RED BLOOD CELLS 0.4 % (0.0-0.19); PLATELET COUNT (AUTO) 413 K/uL (130-400); RED BLOOD CELL COUNT(AUTO) 2.53 MIL/uL (4.00-5.50); RED CELL DISTRIBUTION WIDTH 25.4 % (11.0-15.5); WHITE BLOOD COUNT (AUTO) 6.7 K/uL (4.8-10.8)
[2024-11-06 02:24] LABS: INR 0.98 (0.85-1.15)
[2024-11-06 02:27] LABS: ALBUMIN 2.7 g/dL (3.5-5.0); B-TYPE NATRIURETIC PEPTIDE 133 pg/mL (0-100); BILIRUBIN,TOTAL 1.4 mg/dL (0.2-1.0); CREATININE 1.4 mg/dL (0.5-1.0); TOTAL PROTEIN, SERUM 5.3 g/dL (6.0-8.3)
[2024-11-06 02:42] LABS: PARTIAL THROMBOPLASTIN TIME 105.4 SEC (26.3-35.5)
--- NOTE | 2024-11-06 07:52 | PN ---
[facility] PROGRESS NOTE Date Patient Seen: Nov 06, 2024 Time of Visit: 07:52 Supervising Physician: Kingsley Aleman MD Primary Care Physician: Jaya Ortiz MD Outpatient Specialists: Dr Lima Inpatient Consults: Dr Manny Soto, Dr Cordoba PROBLEM LIST: Acute hypoxic respiratory failure, POA Acute on chronic anemia secondary to myelodysplastic syndrome,POA Thrombocytosis, POA, Thrombus vs mass lesion on descending aortic, POA Right lower community-acquired pneumonia, POA MOUSTAPHA on CKD stage III, POA Osteoarthritis Pulmonary fibrosis COPD Spinal stenosis status post lumbar laminectomy September of 2024 Obesity BMI of 29.4 INTERVAL HISTORY: 11/06/24-patient is found awake alert and oriented x3 hemodynamically stable with a blood pressure of 142/62 heart rate in the 80s respiratory rate of 18 saturating 92% on room air and afebrile. Hemoglobin and hematocrit has been stable this morning H&H 7.5/23.4 status post transfusion of 2 units of PRBCs yesterday. Platelet count 363250. APTT therapeutic at 64.3 this morning continues on a heparin drip. Chemistries sodium 136 BUN 23 creatinine 1.4 and GFR of 27 which is similar to yesterday. Albumin 2.7 total protein 5.3. Cardiology is following who recommend high-dose statin and CV surgery consult pending. REVIEW OF SYSTEMS: Const no fever, no weight changes yes for dyspnea on exertion Eyes:[ no recent vision problems] ENT: [No congestion, ear pain, or sore throat] C/V: [no chest pain, yes for palpitations or edema] Resp: [No cough, congestion, wheezing , yes for Shortness of breath] GI: [No abdominal pain, nausea, vomiting, constipation, or diarrhea] : [No incontinence of or dyuria] M/S: [No joint or pain swelling] Skin: [No rash], right 3rd toe with purple/brown ecchymosis ( per pt she bumped her toe) Neuro: [no headache, focal numbness, or weakness, dizziness or seizures] Psych: [no depression or anxiety] Heme: [no abnormal bruising or bleeding] Lymph: [no swollen glands] PHYSICAL EXAM: GENERAL: alert, weak, awake oriented x 3 HEENT: EOMI, Sclera non icteric, moist mucosa NECK: Supple, no JVD, trachea midline LUNGS: Clear breath sounds bilaterally. No wheezes HEART: Regular rate and rhythm. Normal S1 and S2, without murmurs ABD: Abdomen soft, nontender. Bowel sounds present EXT: No clubbing cyanosis, bilateral plus one pitting edema to lower extremities , right 3rd toe with brown/purple ecchymosis per patient she bumped it three days ago. NEURO: Alert and oriented to person, follows commands Vital Signs (last 8hr) Date Time Temp Pulse Resp B/P (MAP) Pulse Ox O2 Delivery O2 Flow Rate FiO2 11/06/24 06:07 98.6 65 18 155/62 99 Nasal Cannula* 2 28 11/06/24 01:28 98.2 72 18 156/73 96 Nasal Cannula* 2 28 LABS: Hematology Labs: Test 11/06/24 01:55 11/04/24 13:54 Range/Units White Blood Count 6.7 4.8-10.8 K/uL Red Blood Count 2.53 #L 4.00-5.50 MIL/uL Hemoglobin 7.5 L 12.0-16.0 g/dL Hematocrit 23.4 L 36-48 % Mean Corpuscular Volume 92.5 79-99 fL Mean Corpuscular Hemoglobin 29.6 27.0-33.0 pg Mean Corpuscular Hemoglobin Concent 32.1 32.0-36.0 g/dL Red Cell Distribution Width 25.4 H 11.0-15.5 % Platelet Count 413 H 130-400 K/uL Mean Platelet Volume 12.4 H 7.5-10.5 fL Immature Granulocyte % (Auto) 1.6 H 0-1 % Neutrophils (%) (Auto) 53.3 40.0-77.0 % Lymphocytes (%) (Auto) 23.8 21.0-51.0 % Monocytes (%) (Auto) 12.8 3.0-13.0 % Eosinophils (%) (Auto) 7.9 0.0-8.0 % Basophils (%) (Auto) 0.6 0.0-5.0 % Neutrophils # (Auto) 3.6 1.8-7.7 K/uL Lymphocytes # (Auto) 1.6 1.0-4.8 K/uL Monocytes # (Auto) 0.9 0.1-1.0 K/uL Eosinophils # (Auto) 0.53 0.00-0.70 K/uL Basophils # (Auto) 0.04 0.00-0.20 K/uL Absolute Immature Granulocyte (auto 0.11 0-1 K/uL Nucleated Red Blood Cells 0.4 H 0.0-0.19 % Red Blood Cell Morphology See comments Chemistry Labs: Test 11/06/24 01:55 11/05/24 21:34 11/05/24 06:30 11/04/24 19:43 Range/Units Sodium Level 146 H 136-145 mmol/L Potassium Level 4.0 3.5-5.1 mmol/L Chloride Level 110 101-111 mmol/L Carbon Dioxide Level 30 21-32 mmol/L Blood Urea Nitrogen 23 H 7-18 mg/dL Creatinine 1.4 H 0.5-1.0 mg/dL Glomerular Filtration Rate Calc 37 >90 mL/min Random Glucose 104 70-105 mg/dL Lactic Acid Level 1.3 0.8-2.5 mmol/L Total Calcium 8.0 L 8.5-10.1 mg/dL Total Bilirubin 1.4 H 0.2-1.0 mg/dL Aspartate Amino Transf (AST/SGOT) 16 10-37 U/L Alanine Aminotransferase (ALT/SGPT) 15 12-78 U/L Alkaline Phosphatase 81 50-136 U/L B-Type Natriuretic Peptide 133 H 0-100 pg/mL Total Protein 5.3 L 6.0-8.3 g/dL Albumin 2.7 L 3.5-5.0 g/dL Whole Blood Glucose 110 70-110 MG/DL Iron Level 116 50-170 mcg/dL Total Iron Binding Capacity 181 L 250-450 mcg/dL Percent Iron Saturation 64.0 H 22-44 % Total Creatine Kinase 27 # 21-232 U/L Troponin I High Sensitivity 18.9 4-50 ng/L Coagulation Labs: Test 11/06/24 01:55 11/04/24 13:54 Range/Units Prothrombin Time 11.0 9.6-11.6 SEC Prothromb Time International Ratio 0.98 0.85-1.15 Activated Partial Thromboplast Time 105.4 *H 26.3-35.5 SEC D-Dimer Quantitative (PE/DVT) 1048 *H 0-500 ng/mL DIAGNOSTICS / RADIOLOGY RESULTS: [ ] IMAGING REPORT Signed PATIENT: CHITRA PUGA MR#: [id number] : 1940 SEX: F AGE: 84 LOCATION: [facility] ORDER 2300 STATUS: ADM IN REPORT#: [id number] SERVICE 0600 REASON: hypoxic resp failiure ORDERING PHYSICIAN: HOPE HURTADO PROCEDURE: CXR1VW - CHEST 1VW CHEST 1VW HISTORY: Hypoxia COMPARISON: 11/04/2024 FINDINGS: A frontal projection of the chest was obtained. Mild bilateral pulmonary infiltrates are seen may be related to mild pulmonary vascular congestion with possible superimposed pneumonitis. The heart is borderline enlarged. Degenerative changes are seen. Aortic calcifications are seen. IMPRESSION: 1. Mild bilateral pulmonary infiltrates are seen may be related to mild pulmonary vascular congestion with possible superimposed pneumonitis. DICTATED BY: CROW JEAN MD DATE: 11/06/2425 ELECTRONICALLY SIGNED BY: CROW JEAN MD DATE: 11/06/2428 PLAN Admit to PCCU Consult CV surgery and appreciate recommendations Follow cardiology recommendations Heparin drip per protocol for now Serial H&H NEURO: Minimize central acting medications as possible. Maintain fall precautions, adequate lighting during the day PULMONARY: Supplemental 02 as needed. Maintain aspiration precautions at all times Maintain O2 sats above 92% CARDIOVASCULAR: Follow hemodynamics. Vital signs per facility protocol Consult cardiology Consult CV surgery Heparin drip per protocol Telemetry monitoring GI & NUTRITION: Continue with nutritional support. Continue stool softeners and laxatives as needed. Heart healthy diet KIDNEYS & ELECTROLYTES: Strict monitoring of intake, output and overall fluid balance. Avoid nephrotoxic medications to the extent possible. Medications to be dosed according to renal function. Monitor electrolytes and replace as needed ENDOCRINE: Maintain blood glucose between 100-180 at all times. Hypoglycemia protocol in place INFECTIOUS DISEASE: Trend temperature, WBC and procalcitonin level Follow cultures, deescalate antibiotics as soon as possible. Panculture if new onset fever Cover for community-acquired pneumonia empirically Doxycycline Rocephin ONCOLOGY/HEMATOLOGY/COAGULATION: Monitor for s/s of bleeding Monitor hemoglobin, coagulation studies as needed SKIN: Pressure ulcer prevention per facility protocol Specialty mattress ORTHO/REHAB: Continue PT/OT Prophylaxis: Continue GI and DVT prophylaxis Code Status: Full Resuscitation Disposition: PCCU Other: Total patient care time exceeds 60 minutes excluding all procedures. HOPE HURTADO [facility] Nov 06, 2024 07:52
--- NOTE | 2024-11-06 08:35 | PN ---
[facility] Cardiology Progress Note Cardiology progress note dictated for Quynh Stafford MD Date of service 11/06/2024 Problem list: Chest pain with a filling defect in the descending aorta consistent with an intramural hematoma Myelodysplastic syndrome Chronic anemia, Hgb 5.9/Hct 18.9 Elevated D-dimer of 1048, BLE negative for DVT, CTA negative for PE Dyslipidemia Hx of syncope Undocumented history of elevated CT coronary calcium score in [place] Negative Cardiolite stress test in 2019 Mild aortic stenosis and LV outflow obstruction by 2D echo in 02/2024 Recent lumbar laminectomy in 09/2024 Assessment/plan: 84-year-old female presented to the emergency department from [facility] with elevated D-dimer of 1155 on arrival had a hemoglobin of 6.4 hematocrit 20.7. Workup has included a CTA of the chest negative for pulmonary embolism and lower extremity Doppler negative for DVT. CT of the chest mentions ascending thoracic aorta soft tissue filling defect measuring 2 cm x 1.5 cm with questionable thrombus or mass lesion. 2D echocardiogram was performed yesterday demonstrated left ventricular ejection fraction greater than 55%, grade 1 diastolic dysfunction with left atrium severely dilated and a aortic valve area 1.1 cm2. This morning blood pressure is 155/62 heart rate of 65 beats per minute afebrile. She has a history of myelodysplasia patient of Dr. Yovany hernandez who saw her on consult and approved anticoagulation if needed. Today's hemoglobin is 7.5 with a hematocrit of 23.4 after transfusion and platelets of 413. Her BUN is 23 creatinine of 1.4 with a GFR of 37. We will treat the pat ient with high-dose statin and obtain a CT surgery consult. Following this we will decide whether or not to initiate anticoagulation. SERGIO HERRERA Nov 06, 2024 08:35 DENISE STAFFORD MD Nov 06, 2024 08:49
[2024-11-06 08:55] LABS: INR 0.97 (0.85-1.15); PROTHROMBIN TIME 10.9 SEC (9.6-11.6)
[2024-11-06 08:56] LABS: PARTIAL THROMBOPLASTIN TIME 64.3 SEC (26.3-35.5)
[2024-11-06] MEDS: CYANOCOBALAMIN (VITAMIN B-12) 1,000 MCG TABLET PO SCH (09:23)
[2024-11-06] MEDS: ISOSORBIDE MONO 30MG SR TAB PO SCH (09:23)
[2024-11-06] MEDS: FOLIC ACID PO SCH (09:24)
[2024-11-06] MEDS: MULTIVITAMIN PO SCH (09:24)
[2024-11-06] MEDS: IRON PO SCH (09:24)
[2024-11-06] MEDS: furoSEMIDE 20 MG TABLET PO SCH (09:26)
--- NOTE | 2024-11-06 10:29 | NUR ---
DCP: HOME Sw met with pt, her daughter Misty [phone] who is currently here staying with pt to assist pt as needed. [facility]. Pt states she will need PT before dc, to regain strength, since she has been in bed for 3 days. Pt lives alone in a [place], reports she was independent of ADLS, daughter was assisting her with home management , transportation and meal prep. Pt has a walker with seat, and a walk in shower with bench. Pt has no in home care services. PCP is Andreia Ortiz and she uses [facility] for rx. Pt denies dc needs and states she is going home at dc Addendum: 11/06/24 at 1035 by EDISON QUIGLEY Amended: Links added.
[2024-11-06 14:38] LABS: HEMATOCRIT 24.6 % (36-48)
[2024-11-06] MEDS: HEParin 5,000 UNIT VIAL SQ SCH (16:45)
[2024-11-06] MEDS: polyETHYLene GLYCol 3350 17 GM POWD.PACK PO SCH (19:59)
[2024-11-06] MEDS: atorVAStatin 40 MG TABLET PO SCH (19:59)
[2024-11-06] MEDS: doCUSate SODIUM 100 MG CAP PO SCH (19:59)
[2024-11-06 20:43] LABS: HEMATOCRIT 23.1 % (36-48)
--- NOTE | 2024-11-06 21:22 | NUR ---
O2 SATS 91-92%, PATIENT NOT COMPLAINING OF SOB, REFUSED TO BE ON LOW O2 SUPPORT VIA NC
--- NOTE | 2024-11-06 22:26 | CONS ---
This patient was admitted to the hospital with elevated D-dimer. CT scan of the chest demonstrates a soft tissue filling defect within the ascending aorta measuring 2 x 1.5 cm posteriorly, immediately below the aortic arch. The patient is asymptomatic. The echocardiogram demonstrates a normal 4-chamber heart ____ ventricular function. In order to better delineate this mass, I recommend to do MRI, ____ with cultures to see whether this could be vasculitis, vascular tumor or a penetrating ulcer. For the time being, I recommend to maintain blood pressure under control and as well as all other clinical issues until an MRI can be performed. TID: [id number] RECEIPT: [id number]
--- NOTE | 2024-11-06 22:55 | NUR ---
CALLED FOR A REPORT, FLOOR NURSE NOT READY YET, WILL WAIT FOR A CALL BACK
[2024-11-06 23:30] VITALS: BP 139/67; PULSE 74; RESP 18; TEMP 97.7; O2SAT 96
[2024-11-07] VITALS (8 sets, daily range): BP systolic 124–154; BP diastolic 58–72; PULSE 69–71; RESP 16–20; TEMP 97.8–98.4; O2SAT 95–99
[2024-11-07 03:40] LABS: BASOPHILS # (AUTO) 0.03 K/uL (0.00-0.20); BASOPHILS % (AUTO) 0.5 % (0.0-5.0); EOSINOPHILS # (AUTO) 0.69 K/uL (0.00-0.70); EOSINOPHILS % (AUTO) 11.3 % (0.0-8.0); HEMATOCRIT 22.3 % (36-48); IMMATURE GRANULOCYTE ABSOLUTE 0.08 K/uL (0-1); LYMPHOCYTES # (AUTO) 1.6 K/uL (1.0-4.8); LYMPHOCYTES % (AUTO) 26.8 % (21.0-51.0); MEAN CORPUSCULAR HEMOGLOBIN 29.7 pg (27.0-33.0); MEAN CORPUSCULAR HGB CONC 31.8 g/dL (32.0-36.0); MEAN CORPUSCULAR VOLUME 93.3 fL (79-99); MONOCYTES # (AUTO) 0.9 K/uL (0.1-1.0); MONOCYTES % (AUTO) 14.6 % (3.0-13.0); NEUTROPHILS # (AUTO) 2.8 K/uL (1.8-7.7); NEUTROPHILS % (AUTO) 45.5 % (40.0-77.0); NUCLEATED RED BLOOD CELLS 0.5 % (0.0-0.19); PLATELET COUNT (AUTO) 407 K/uL (130-400); RED BLOOD CELL COUNT(AUTO) 2.39 MIL/uL (4.00-5.50); RED CELL DISTRIBUTION WIDTH 24.4 % (11.0-15.5); WHITE BLOOD COUNT (AUTO) 6.1 K/uL (4.8-10.8)
[2024-11-07 03:53] LABS: ALBUMIN 2.5 g/dL (3.5-5.0); BILIRUBIN,TOTAL 0.6 mg/dL (0.2-1.0); CREATININE 1.5 mg/dL (0.5-1.0); POTASSIUM 4.3 mmol/L (3.5-5.1); TOTAL PROTEIN, SERUM 5.1 g/dL (6.0-8.3)
[2024-11-07 03:57] LABS: INR 1.01 (0.85-1.15); PROTHROMBIN TIME 11.3 SEC (9.6-11.6)
[2024-11-07 03:58] LABS: PARTIAL THROMBOPLASTIN TIME 72.2 SEC (26.3-35.5)
--- NOTE | 2024-11-07 06:53 | PN ---
[facility] Cardiology Progress Note CARDIOLOGY PROGRESS NOTE NOVEMBER 07, 2024 PROBLEMS: 1. Intramural hematoma versus thrombus of the descending aorta presenting as chest pain 2. Myelodysplasia 3. Elevated D-dimer with negative CTA for pulmonary embolism 4. Dyslipidemia 5. History of negative Cardiolite stress test 2019 6. Mild aortic stenosis by echo February 2024 7. Recent lumbar laminectomy September 2024 8. Chronic kidney disease stage IIIB Blood pressure is running 120-130 systolic. Heart rate is in the 70s the patient is afebrile. White count 6.1 hemoglobin 7.1 platelet count [id number]. Potassium 4.3 BUN 20 creatinine 1.5.. The patient continues on atorvastatin furosemide heparin protocol. The patient was seen by Cardiothoracic surgery who was recommended a vasculitis workup. Vasculitis workup has been sent. We will review results of these exams. DENISE STAFFORD MD Nov 07, 2024 06:53
--- NOTE | 2024-11-07 08:31 | NUR ---
MIRALAX DOSE SCHEDULED AT BEDTIME...PATIENT REQUESTING IT NOW. LAST BOWEL MOVEMENT 11/04/24.
--- NOTE | 2024-11-07 11:10 | HMCIMG ---
CHEST 1VW HISTORY: Hypoxic respiratory failure COMPARISON: 11/06/2024 FINDINGS: A frontal projection of the chest was obtained. Mild bilateral pulmonary infiltrates are seen may be related to mild pulmonary vascular congestion with possible superimposed pneumonitis. The heart is borderline enlarged. Degenerative changes are seen. Aortic calcifications are seen. IMPRESSION: 1. Mild bilateral pulmonary infiltrates are seen may be related to mild pulmonary vascular congestion with possible superimposed pneumonitis.
[2024-11-07 11:26] LABS: HEMATOCRIT 22.1 % (36-48)
[2024-11-07] MEDS: REGADENOSON 0.4 MG/5 ML PF SYG IVP SCH (11:30)
--- NOTE | 2024-11-07 12:40 | NUR ---
C/O DIZZINESS. ASSISTED BACK TO BED. BP 99/48, P 66, RR 22, 98% ROOM AIR. WILL CONTINUE TO MONITOR. Addendum: 11/07/24 at 1736 by STEFANO NEELY RN RN WRONG PATIENT DOCUMENTATION
[2024-11-07] MEDS: HEParin 5,000 UNIT VIAL IV ONE (12:45)
[2024-11-07 19:37] LABS: HEMATOCRIT 26.1 % (36-48)
--- NOTE | 2024-11-07 20:40 | PN ---
[facility] PROGRESS NOTE Date Patient Seen: Nov 07, 2024 Time of Visit: 15:32 Supervising Physician: JIM MENDOZA MD Primary Care Physician: Jaya Ortiz MD Outpatient Specialists: Dr Lima Inpatient Consults: Dr Manny Soto, Dr Cordoba PROBLEM LIST: Acute hypoxic respiratory failure, POA Acute on chronic anemia secondary to myelodysplastic syndrome,POA Thrombocytosis, POA, Thrombus vs mass lesion on descending aortic, POA Right lower community-acquired pneumonia, POA MOUSTAPHA on CKD stage III, POA Osteoarthritis Pulmonary fibrosis COPD Spinal stenosis status post lumbar laminectomy September of 2024 Obesity BMI of 29.4 INTERVAL HISTORY: 11/06/24-patient is found awake alert and oriented x3 hemodynamically stable with a blood pressure of 142/62 heart rate in the 80s respiratory rate of 18 saturating 92% on room air and afebrile. Hemoglobin and hematocrit has been stable this morning H&H 7.5/23.4 status post transfusion of 2 units of PRBCs yesterday. Platelet count [id number]. APTT therapeutic at 64.3 this morning continues on a heparin drip. Chemistries sodium 136 BUN 23 creatinine 1.4 and GFR of 27 which is similar to yesterday. Albumin 2.7 total protein 5.3. Cardiology is following who recommend high-dose statin and CV surgery consult pending. 11/07 Patient is an 84 year old lady admitted due to elevated D-dimer found with an aortic thrombus place on heparin drip, found with Hb of 6.9 plan is to be transfuse 1 u of PRBC she is follow by dr Dexter / Dr Conti pending for Laxiscan , patient had an episode of anxiety this morning and wants to go home as per nurse report right now she is more calm not in distress, we will follow up cardiothoracic recommendations. REVIEW OF SYSTEMS: Const no fever, no weight changes yes for dyspnea on exertion Eyes:[ no recent vision problems] ENT: [No congestion, ear pain, or sore throat] C/V: [no chest pain, yes for palpitations or edema] Resp: [No cough, congestion, wheezing , yes for Shortness of breath] GI: [No abdominal pain, nausea, vomiting, constipation, or diarrhea] : [No incontinence of or dyuria] M/S: [No joint or pain swelling] Skin: [No rash], right 3rd toe with purple/brown ecchymosis ( per pt she bumped her toe) Neuro: [no headache, focal numbness, or weakness, dizziness or seizures] Psych: [no depression or anxiety] Heme: [no abnormal bruising or bleeding] Lymph: [no swollen glands] PHYSICAL EXAM: GENERAL: alert, weak, awake oriented x 3 HEENT: EOMI, Sclera non icteric, moist mucosa NECK: Supple, no JVD, trachea midline LUNGS: Clear breath sounds bilaterally. No wheezes HEART: Regular rate and rhythm. Normal S1 and S2, without murmurs ABD: Abdomen soft, nontender. Bowel sounds present EXT: No clubbing cyanosis, bilateral plus one pitting edema to lower extremities, right 3rd toe with brown/purple ecchymosis NEURO: Alert and oriented to person, follows commands Vital Signs (last 8hr) Date Time Temp Pulse Resp B/P (MAP) Pulse Ox O2 Delivery O2 Flow Rate FiO2 11/07/24 19:19 98.1 71 16 145/71 94 Nasal Cannula 2.0 11/07/24 16:00 98.4 71 20 138/61 96 Nasal Cannula 2.0 LABS: Hematology Labs: Test 11/07/24 19:30 11/07/24 07:31 11/07/24 03:07 Range/Units Hemoglobin 8.2 L 12.0-16.0 g/dL Hematocrit 26.1 L 36-48 % Erythrocyte Sedimentation Rate 20 0-30 MM/HR White Blood Count 6.1 4.8-10.8 K/uL Red Blood Count 2.39 L 4.00-5.50 MIL/uL Mean Corpuscular Volume 93.3 79-99 fL Mean Corpuscular Hemoglobin 29.7 27.0-33.0 pg Mean Corpuscular Hemoglobin Concent 31.8 L 32.0-36.0 g/dL Red Cell Distribution Width 24.4 H 11.0-15.5 % Platelet Count 407 H 130-400 K/uL Mean Platelet Volume 12.5 H 7.5-10.5 fL Immature Granulocyte % (Auto) 1.3 H 0-1 % Neutrophils (%) (Auto) 45.5 40.0-77.0 % Lymphocytes (%) (Auto) 26.8 21.0-51.0 % Monocytes (%) (Auto) 14.6 H 3.0-13.0 % Eosinophils (%) (Auto) 11.3 H 0.0-8.0 % Basophils (%) (Auto) 0.5 0.0-5.0 % Neutrophils # (Auto) 2.8 1.8-7.7 K/uL Lymphocytes # (Auto) 1.6 1.0-4.8 K/uL Monocytes # (Auto) 0.9 0.1-1.0 K/uL Eosinophils # (Auto) 0.69 0.00-0.70 K/uL Basophils # (Auto) 0.03 0.00-0.20 K/uL Absolute Immature Granulocyte (auto 0.08 0-1 K/uL Nucleated Red Blood Cells 0.5 H 0.0-0.19 % Chemistry Labs: Test 11/07/24 03:07 11/06/24 01:55 11/05/24 21:34 Range/Units Sodium Level 145 136-145 mmol/L Potassium Level 4.3 3.5-5.1 mmol/L Chloride Level 111 101-111 mmol/L Carbon Dioxide Level 30 21-32 mmol/L Blood Urea Nitrogen 20 H 7-18 mg/dL Creatinine 1.5 H 0.5-1.0 mg/dL Glomerular Filtration Rate Calc 34 >90 mL/min Random Glucose 99 70-105 mg/dL Total Calcium 8.0 L 8.5-10.1 mg/dL Total Bilirubin 0.6 0.2-1.0 mg/dL Aspartate Amino Transf (AST/SGOT) 14 10-37 U/L Alanine Aminotransferase (ALT/SGPT) 16 12-78 U/L Alkaline Phosphatase 77 50-136 U/L Total Protein 5.1 L 6.0-8.3 g/dL Albumin 2.5 L 3.5-5.0 g/dL Lactic Acid Level 1.3 0.8-2.5 mmol/L B-Type Natriuretic Peptide 133 H 0-100 pg/mL Whole Blood Glucose 110 70-110 MG/DL Coagulation Labs: Test 11/07/24 17:52 11/07/24 03:07 Range/Units Activated Partial Thromboplast Time 90.3 #*H 26.3-35.5 SEC Prothrombin Time 11.3 9.6-11.6 SEC Prothromb Time International Ratio 1.01 0.85-1.15 DIAGNOSTICS / RADIOLOGY RESULTS: [ ] PLAN Laxiscan Consult CV surgery and appreciate recommendations Follow cardiology recommendations Heparin drip per protocol for now Serial H&H NEURO: Minimize central acting medications as possible. Maintain fall precautions, adequate lighting during the day PULMONARY: Supplemental 02 as needed. Maintain aspiration precautions at all times Maintain O2 sats above 92% CARDIOVASCULAR: Follow hemodynamics. Vital signs per facility protocol Consult cardiology Consult CV surgery Heparin drip per protocol Telemetry monitoring GI & NUTRITION: Continue with nutritional support. Continue stool softeners and laxatives as needed. Heart healthy diet KIDNEYS & ELECTROLYTES: Strict monitoring of intake, output and overall fluid balance. Avoid nephrotoxic medications to the extent possible. Medications to be dosed according to renal function. Monitor electrolytes and replace as needed ENDOCRINE: Maintain blood glucose between 100-180 at all times. Hypoglycemia protocol in place INFECTIOUS DISEASE: Trend temperature, WBC and procalcitonin level Follow cultures, deescalate antibiotics as soon as possible. Panculture if new onset fever Cover for community-acquired pneumonia empirically Doxycycline Rocephin ONCOLOGY/HEMATOLOGY/COAGULATION: Monitor for s/s of bleeding Monitor hemoglobin, coagulation studies as needed SKIN: Pressure ulcer prevention per facility protocol Specialty mattress ORTHO/REHAB: Continue PT/OT Prophylaxis: Continue GI and DVT prophylaxis Code Status: Full Resuscitation Disposition: ATTESTATION BY PHYSICIAN Documentation assistance provided by a scribe, information recorded by the scribe was done at my direction and has been reviewed and validated by me." JIM MENDOZA MD I personally scribed for REJI FERNANDEZ MD ([email or web address]) on 11/07/24 at 20:40. Electronically submitted by Consuelo Brown ([email or web address]). REJI FERNANDEZ MD Nov 07, 2024 20:40
[2024-11-07] MEDS: ZOSYN 3.375GM +NS 50ML IV SCH (22:15)
[2024-11-08] VITALS (8 sets, daily range): BP systolic 118–148; BP diastolic 54–74; PULSE 65–73; RESP 16–22; TEMP 97.7–98; O2SAT 97
[2024-11-08 01:44] LABS: BASOPHILS # (AUTO) 0.02 K/uL (0.00-0.20); BASOPHILS % (AUTO) 0.4 % (0.0-5.0); EOSINOPHILS # (AUTO) 0.48 K/uL (0.00-0.70); EOSINOPHILS % (AUTO) 9.2 % (0.0-8.0); HEMATOCRIT 23.6 % (36-48); IMMATURE GRANULOCYTE ABSOLUTE 0.06 K/uL (0-1); LYMPHOCYTES # (AUTO) 1.6 K/uL (1.0-4.8); LYMPHOCYTES % (AUTO) 31.6 % (21.0-51.0); MEAN CORPUSCULAR HEMOGLOBIN 29.5 pg (27.0-33.0); MEAN CORPUSCULAR HGB CONC 32.6 g/dL (32.0-36.0); MEAN CORPUSCULAR VOLUME 90.4 fL (79-99); MONOCYTES # (AUTO) 0.7 K/uL (0.1-1.0); MONOCYTES % (AUTO) 12.9 % (3.0-13.0); NEUTROPHILS # (AUTO) 2.3 K/uL (1.8-7.7); NEUTROPHILS % (AUTO) 44.7 % (40.0-77.0); NUCLEATED RED BLOOD CELLS 0.4 % (0.0-0.19); PLATELET COUNT (AUTO) 350 K/uL (130-400); RED BLOOD CELL COUNT(AUTO) 2.61 MIL/uL (4.00-5.50); RED CELL DISTRIBUTION WIDTH 22.7 % (11.0-15.5); WHITE BLOOD COUNT (AUTO) 5.2 K/uL (4.8-10.8)
[2024-11-08 02:07] LABS: ALBUMIN 2.7 g/dL (3.5-5.0); BILIRUBIN,TOTAL 0.7 mg/dL (0.2-1.0); CREATININE 1.4 mg/dL (0.5-1.0); POTASSIUM 3.8 mmol/L (3.5-5.1); TOTAL PROTEIN, SERUM 5.3 g/dL (6.0-8.3)
--- NOTE | 2024-11-08 06:08 | PN ---
[facility] Cardiology Progress Note CARDIOLOGY PROGRESS NOTE NOVEMBER 08, 2024 PROBLEMS: 1. 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 She had no documented atrial arrhythmias and no mural thrombus was noted on echo. 2. Myelodysplasia 3. Elevated D-dimer with negative CTA for pulmonary embolism 4. Dyslipidemia 5. History of negative Cardiolite stress test 2019 6. Moderate aortic stenosis with LV ejection fraction of greater than 55% by echo this admission 7. Recent lumbar laminectomy September 2024 8. Chronic kidney disease stage IIIB The patient was initially evaluated as an outpatient for chest pain. She was scheduled for a 2D echo Lexiscan Cardiolite stress test and D-dimer test. Her D-dimer test was abnormal and she was referred for emergent CT pulmonary angiogram with PE protocol. There was no evidence of pulmonary embolism but the study did demonstrate thrombus in the descending aorta just beyond the left subclavian artery. Differential includes thrombus versus an intramural hematoma. Blood pressure is ranging between 140 and 150 systolic. Heart rate is in the 70s. The patient is afebrile. Hemoglobin on admission was 6.9 and the patient has been transfused. Hemoglobin this morning is 7.7. Platelet count [id number]. Potassium 3.8 BUN 21 creatinine 1.4. Creatinine is down from 1.5 on admission. Sedimentation rate is 20. Suggesting this is not aortitis. DAYANA rheumatoid factors are pending. 2D echo has shown well-preserved ejection fraction greater than 55% with grade 1 diastolic left ventricular dysfunction. There was no evidence of mural thrombus. The patient has moderate aortic stenosis. No pericardial effusion. Patient is continuing on high-dose statin furosemide heparin protocol isosorbide mononitrate pantoprazole potassium protocol. Patient had initially presented with chest pain. It is not clear that this thrombus in the aorta is a cause for this. She is scheduled for a Levi iscan Cardiolite stress test today. We will review results when available. Patient has been seen in consultation by Cardiothoracic surgery. In addition Dr. Macedo is reviewing the images to make recommendations as to whether or not the patient should have intervention on aortic versus anticoagulation. The patient has remained in sinus rhythm throughout this hospitalization. She denies any chest pain or back pain. DENISE STAFFORD MD Nov 08, 2024 06:08
--- NOTE | 2024-11-08 07:53 | NUR ---
RAD NUCLEAR MEDICINE SPOKE TO NURSE STEFANO, LET HER KNOW PATIENT HISTORY OF THROMBUS IN DESCENDING AORTA. I MENTIONED IF STRESS TEST WAS GOOD TO GO SHE SAID YES. ORDER LUCIANA Watson MD, ORDERED THE STRESS TEST FOR PATIENT IN ROOM 223 WE WILL PROCEED WITH EXAM. UPON CHECKING PATIENTS NOTES LUCIANA Watson MD IS AWARE OF PATIENT HISTORY WELL,NOTES SIGNED AND DATED BY @ [id number] 11/08/24.
--- NOTE | 2024-11-08 09:52 | PN ---
LOCATION: Room 223. SUBJECTIVE: The patient is doing well. She had chest pain, filling defect of the aorta, which showed some kind of hematoma. She is awake, alert. She is on anticoagulation. Her hemoglobin is stable. She has myelodysplastic syndrome, requires erythropoietin every week just to maintain her hemoglobin. She is not bleeding. She was seen by Cardiothoracic Surgery, is recommending an MRI of the aorta and some other workup. The patient is doing well. She is just frustrating. They do not have any answer for her yet. She is totally asymptomatic. PHYSICAL EXAMINATION: GENERAL: Shows elderly woman. VITAL SIGNS: Blood pressure 124/58, pulse 69, respirations 20. CHEST: Clear. ABDOMEN: Soft. EXTREMITIES: Show edema. NEUROLOGIC: Alert and oriented. LABORATORY DATA: Stable. IMPRESSION: * Chest pain with filling defect in the aorta. Workup still in progress. * Myelodysplastic syndrome. * Anemia due to above. * Elevated D-dimer of unknown significance. * Hyperlipidemia. * Syncope. * Aortic stenosis. * Lumbar laminectomy. PLAN: She can be converted to any type of anticoagulation, Xarelto, Eliquis at that time, if she is fit. Dr. Rick is recommending an MRI of the aorta. He did not order it. We will confer with ____ about that. The patient is otherwise stable. TID: [id number] RECEIPT: [id number]
[2024-11-08 12:43] LABS: HEMATOCRIT 27.2 % (36-48)
[2024-11-08] MEDS: ceFEPime HCL 1 GM VIAL IVPB SCH (16:52)
--- NOTE | 2024-11-08 17:28 | PN ---
[facility] PROGRESS NOTE Date Patient Seen: Nov 08, 2024 Time of Visit: 13:25 Supervising Physician: COLIN CARRILLO MD Primary Care Physician: Jaya Ortiz MD Outpatient Specialists: Dr Lima Inpatient Consults: Dr Manny Soto, Dr Cordoba PROBLEM LIST: Acute hypoxic respiratory failure, POA Acute on chronic anemia secondary to myelodysplastic syndrome,POA Thrombocytosis, POA, Thrombus vs mass lesion on descending aortic, POA Right lower community-acquired pneumonia, POA MOUSTAPHA on CKD stage III, POA Osteoarthritis Pulmonary fibrosis COPD Spinal stenosis status post lumbar laminectomy September of 2024 Obesity BMI of 29.4 INTERVAL HISTORY: 11/06/24-patient is found awake alert and oriented x3 hemodynamically stable with a blood pressure of 142/62 heart rate in the 80s respiratory rate of 18 saturating 92% on room air and afebrile. Hemoglobin and hematocrit has been stable this morning H&H 7.5/23.4 status post transfusion of 2 units of PRBCs yesterday. Platelet count [id number]. APTT therapeutic at 64.3 this morning continues on a heparin drip. Chemistries sodium 136 BUN 23 creatinine 1.4 and GFR of 27 which is similar to yesterday. Albumin 2.7 total protein 5.3. Cardiology is following who recommend high-dose statin and CV surgery consult pending. 11/07 Patient is an 84 year old lady admitted due to elevated D-dimer found with an aortic thrombus place on heparin drip, found with Hb of 6.9 plan is to be transfuse 1 u of PRBC she is follow by dr Dexter / Dr Conti pending for Laxiscan , patient had an episode of anxiety this morning and wants to go home as per nurse report right now she is more calm not in distress, we will follow up cardiothoracic recommendations. 11/08 Patient is awake, alert, well oriented, able to walk , not in distress, barely finished her Laxiscan, pending results and CT recommendations otherwise, respiratory sexton, doing fine, not SOB, she is s/p PRBC, plan is to continue with heparin drip, and add Cefepime 1 gr IV every 12 hrs for only 48 hours no new issues reported. REVIEW OF SYSTEMS: Const no fever, no weight changes yes for dyspnea on exertion Eyes:[ no recent vision problems] ENT: [No congestion, ear pain, or sore throat] C/V: [no chest pain, yes for palpitations or edema] Resp: [No cough, congestion, wheezing , yes for Shortness of breath] GI: [No abdominal pain, nausea, vomiting, constipation, or diarrhea] : [No incontinence of or dyuria] M/S: [No joint or pain swelling] Skin: [No rash], right 3rd toe with purple/brown ecchymosis ( per pt she bumped her toe) Neuro: [no headache, focal numbness, or weakness, dizziness or seizures] Psych: [no depression or anxiety] Heme: [no abnormal bruising or bleeding] Lymph: [no swollen glands] PHYSICAL EXAM: GENERAL: alert, weak, awake oriented x 3 HEENT: EOMI, Sclera non icteric, moist mucosa NECK: Supple, no JVD, trachea midline LUNGS: Clear breath sounds bilaterally. No wheezes HEART: Regular rate and rhythm. Normal S1 and S2, without murmurs ABD: Abdomen soft, nontender. Bowel sounds present EXT: No clubbing cyanosis, bilateral plus one pitting edema to lower extremities, right 3rd toe with brown/purple ecchymosis NEURO: Alert and oriented to person, follows commands Vital Signs (last 8hr) Date Time Temp Pulse Resp B/P (MAP) Pulse Ox O2 Delivery O2 Flow Rate FiO2 11/08/24 16:00 98.1 72 20 148/54 97 Nasal Cannula 2.0 11/08/24 11:00 97.7 65 20 139/61 94 Room Air LABS: Hematology Labs: Test 11/08/24 12:32 11/08/24 01:39 11/07/24 07:31 Range/Units Hemoglobin 8.8 L 12.0-16.0 g/dL Hematocrit 27.2 L 36-48 % White Blood Count 5.2 4.8-10.8 K/uL Red Blood Count 2.61 L 4.00-5.50 MIL/uL Mean Corpuscular Volume 90.4 79-99 fL Mean Corpuscular Hemoglobin 29.5 27.0-33.0 pg Mean Corpuscular Hemoglobin Concent 32.6 32.0-36.0 g/dL Red Cell Distribution Width 22.7 H 11.0-15.5 % Platelet Count 350 130-400 K/uL Mean Platelet Volume 11.9 H 7.5-10.5 fL Immature Granulocyte % (Auto) 1.2 H 0-1 % Neutrophils (%) (Auto) 44.7 40.0-77.0 % Lymphocytes (%) (Auto) 31.6 21.0-51.0 % Monocytes (%) (Auto) 12.9 3.0-13.0 % Eosinophils (%) (Auto) 9.2 H 0.0-8.0 % Basophils (%) (Auto) 0.4 0.0-5.0 % Neutrophils # (Auto) 2.3 1.8-7.7 K/uL Lymphocytes # (Auto) 1.6 1.0-4.8 K/uL Monocytes # (Auto) 0.7 0.1-1.0 K/uL Eosinophils # (Auto) 0.48 0.00-0.70 K/uL Basophils # (Auto) 0.02 0.00-0.20 K/uL Absolute Immature Granulocyte (auto 0.06 0-1 K/uL Nucleated Red Blood Cells 0.4 H 0.0-0.19 % Erythrocyte Sedimentation Rate 20 0-30 MM/HR Chemistry Labs: Test 11/08/24 01:39 Range/Units Sodium Level 142 136-145 mmol/L Potassium Level 3.8 3.5-5.1 mmol/L Chloride Level 109 101-111 mmol/L Carbon Dioxide Level 27 21-32 mmol/L Blood Urea Nitrogen 21 H 7-18 mg/dL Creatinine 1.4 H 0.5-1.0 mg/dL Glomerular Filtration Rate Calc 37 >90 mL/min Random Glucose 98 70-105 mg/dL Total Calcium 8.2 L 8.5-10.1 mg/dL Total Bilirubin 0.7 0.2-1.0 mg/dL Aspartate Amino Transf (AST/SGOT) 14 10-37 U/L Alanine Aminotransferase (ALT/SGPT) 14 12-78 U/L Alkaline Phosphatase 81 50-136 U/L Total Protein 5.3 L 6.0-8.3 g/dL Albumin 2.7 L 3.5-5.0 g/dL Coagulation Labs: Test 11/08/24 07:29 11/07/24 03:07 Range/Units Activated Partial Thromboplast Time 54.1 H 26.3-35.5 SEC Prothrombin Time 11.3 9.6-11.6 SEC Prothromb Time International Ratio 1.01 0.85-1.15 DIAGNOSTICS / RADIOLOGY RESULTS: [ ] PLAN Add Cefepime 1 gr IV every 12 hours x 48 hours. Laxiscan results Consult CV surgery and appreciate recommendations Follow cardiology recommendations Heparin drip per protocol for now Serial H&H NEURO: Minimize central acting medications as possible. Maintain fall precautions, adequate lighting during the day PULMONARY: Supplemental 02 as needed. Maintain aspiration precautions at all times Maintain O2 sats above 92% CARDIOVASCULAR: Follow hemodynamics. Vital signs per facility protocol Consult cardiology Consult CV surgery Heparin drip per protocol Telemetry monitoring GI & NUTRITION: Continue with nutritional support. Continue stool softeners and laxatives as needed. Heart healthy diet KIDNEYS & ELECTROLYTES: Strict monitoring of intake, output and overall fluid balance. Avoid nephrotoxic medications to the extent possible. Medications to be dosed according to renal function. Monitor electrolytes and replace as needed ENDOCRINE: Maintain blood glucose between 100-180 at all times. Hypoglycemia protocol in place INFECTIOUS DISEASE: Trend temperature, WBC and procalcitonin level Follow cultures, deescalate antibiotics as soon as possible. Panculture if new onset fever Cover for community-acquired pneumonia empirically Doxycycline Rocephin ONCOLOGY/HEMATOLOGY/COAGULATION: Monitor for s/s of bleeding Monitor hemoglobin, coagulation studies as needed SKIN: Pressure ulcer prevention per facility protocol Specialty mattress ORTHO/REHAB: Continue PT/OT Prophylaxis: Continue GI and DVT prophylaxis Code Status: Full Resuscitation Disposition: ATTESTATION BY PHYSICIAN Documentation assistance provided by a scribe, information recorded by the scribe was done at my direction and has been reviewed and validated by me." LORENA SHAW MD I personally scribed for LORENA SHAW MD ([email or web address]) on 11/08/24 at 17:28. Electronically submitted by Consuelo Brown ([id number]). LORENA SHAW MD Nov 08, 2024 17:28
--- NOTE | 2024-11-08 19:48 | PN ---
LOCATION: 223. SUBJECTIVE: The patient remained stable overnight, going down for a stress test. She is awake, alert. No fever, chills or other complaints. She actually feels much better. She does have aortic stenosis. PHYSICAL EXAMINATION: GENERAL: Shows elderly woman. CHEST: Clear. ABDOMEN: Soft. EXTREMITIES: Show edema. NEUROLOGIC: Intact. IMPRESSION: Chest pain workup [facility], thrombus in the descending aorta, treated; myelodysplastic syndrome, hyperlipidemia, aortic stenosis, lumbar radiculopathy, stage 3 kidney disease. PLAN: Continue medical management. Her hemoglobin stable at 9.7. I would continue her erythropoietin and other measures. Clarify the heart situation by Dr. Lima. Otherwise, from my standpoint, she can go home. TID: [id number] RECEIPT: [id number]
[2024-11-08 20:19] LABS: HEMATOCRIT 24.4 % (36-48)
[2024-11-09 04:00] VITALS: BP 123/62; PULSE 69; RESP 18; TEMP 97.9
[2024-11-09 04:48] LABS: HEMATOCRIT 24.7 % (36-48)
[2024-11-09 07:00] VITALS: BP 148/70; PULSE 68; RESP 19; TEMP 98.1
[2024-11-09 08:00] VITALS: O2SAT 97
--- NOTE | 2024-11-09 10:38 | PN ---
[facility] PROGRESS NOTE Date Patient Seen: Nov 09, 2024 Time of Visit: 10:32 Supervising Physician: Dr Macedo Primary Care Physician: Jaya Ortiz MD Outpatient Specialists: Dr Lima Inpatient Consults: Dr Manny Soto, Dr Cordoba PROBLEM LIST: Acute hypoxic respiratory failure, POA resolved Acute on chronic anemia secondary to myelodysplastic syndrome,POA Thrombocytosis, POA, Thrombus vs mass lesion on descending aortic, POA Right lower community-acquired pneumonia, POA MOUSTAPHA on CKD stage III, POA Osteoarthritis Pulmonary fibrosis COPD Spinal stenosis status post lumbar laminectomy September of 2024 Obesity BMI of 29.4 Plan Summary: Supplemental oxygen as needed Wean off as tolerated Continue cefepime Pending Lexiscan stress test results Follow cardiovascular surgery recommendation Follow Cardiology recommendation Monitor H&H closely Transfuse if needed to maintain hemoglobin above 7.0 Dispo: Home once cleared by cardio. INTERVAL HISTORY: 11/06/24-patient is found awake alert and oriented x3 hemodynamically stable with a blood pressure of 142/62 heart rate in the 80s respiratory rate of 18 saturating 92% on room air and afebrile. Hemoglobin and hematocrit has been stable this morning H&H 7.5/23.4 status post transfusion of 2 units of PRBCs yesterday. Platelet count [id number]. APTT therapeutic at 64.3 this morning continues on a heparin drip. Chemistries sodium 136 BUN 23 creatinine 1.4 and GFR of 27 which is similar to yesterday. Albumin 2.7 total protein 5.3. Cardiology is following who recommend high-dose statin and CV surgery consult pending. 11/07 Patient is an 84 year old lady admitted due to elevated D-dimer found with an aortic thrombus place on heparin drip, found with Hb of 6.9 plan is to be transfuse 1 u of PRBC she is follow by dr Dexter / Dr Conti pending for Laxiscan , patient had an e pisode of anxiety this morning and wants to go home as per nurse report right now she is more calm not in distress, we will follow up cardiothoracic recommendations. 11/08 Patient is awake, alert, well oriented, able to walk , not in distress, barely finished her Laxiscan, pending results and CT recommendations otherwise, respiratory sexton, doing fine, not SOB, she is s/p PRBC, plan is to continue with heparin drip, and add Cefepime 1 gr IV every 12 hrs for only 48 hours no new issues reported. 11/09 - patient is seen and evaluated at the bedside. Patient is accompanied by her daughter. Patient is sitting up in bed awake alert and oriented with no signs of any acute distress. Patient had a Lexiscan stress test performed yesterday and currently pending results. Patient reports to go home and denies chest discomfort, chest pain or dyspnea with exertion. Patient has been cleared for discharge from Dr. Cordoba standpoint. Recommended follow up in clinic as outpatient. Labs labs show H&H of 7.9/24.7 this morning. We will await for Lexiscan stress test results. Plan to DC home once cleared from Cardiology. REVIEW OF SYSTEMS: Const no fever, no weight changes yes for dyspnea on exertion Eyes:[ no recent vision problems] ENT: [No congestion, ear pain, or sore throat] C/V: [no chest pain, yes for palpitations or edema] Resp: [No cough, congestion, wheezing , yes for Shortness of breath] GI: [No abdominal pain, nausea, vomiting, constipation, or diarrhea] : [No incontinence of or dyuria] M/S: [No joint or pain swelling] Skin: [No rash], right 3rd toe with purple/brown ecchymosis ( per pt she bumped her toe) Neuro: [no headache, focal numbness, or weakness, dizziness or seizures] Psych: [no depression or anxiety] Heme: [no abnormal bruising or bleeding] Lymph: [no swollen glands] PHYSICAL EXAM: GENERAL: alert, weak, awake oriented x 3 HEENT: EOMI, Sclera non icteric, moist mucosa NECK: Supple, no JVD, trachea midline LUNGS: Clear breath sounds bilaterally. No wheezes HEART: Regular rate and rhythm. Normal S1 and S2, without murmurs ABD: Abdomen soft, nontender. Bowel sounds present EXT: No clubbing cyanosis, bilateral plus one pitting edema to lower extremities, right 3rd toe with brown/purple ecchymosis NEURO: Alert and oriented to person, follows commands Vital Signs (last 8hr) Date Time Temp Pulse Resp B/P (MAP) Pulse Ox O2 Delivery O2 Flow Rate FiO2 11/09/24 07:00 98.1 68 19 148/70 94 Nasal Cannula 2.0 11/09/24 04:00 97.9 69 18 123/62 98 Nasal Cannula 2.0 LABS: Hematology Labs: Test 11/09/24 04:02 11/08/24 01:39 Range/Units Hemoglobin 7.9 L 12.0-16.0 g/dL Hematocrit 24.7 L 36-48 % White Blood Count 5.2 4.8-10.8 K/uL Red Blood Count 2.61 L 4.00-5.50 MIL/uL Mean Corpuscular Volume 90.4 79-99 fL Mean Corpuscular Hemoglobin 29.5 27.0-33.0 pg Mean Corpuscular Hemoglobin Concent 32.6 32.0-36.0 g/dL Red Cell Distribution Width 22.7 H 11.0-15.5 % Platelet Count 350 130-400 K/uL Mean Platelet Volume 11.9 H 7.5-10.5 fL Immature Granulocyte % (Auto) 1.2 H 0-1 % Neutrophils (%) (Auto) 44.7 40.0-77.0 % Lymphocytes (%) (Auto) 31.6 21.0-51.0 % Monocytes (%) (Auto) 12.9 3.0-13.0 % Eosinophils (%) (Auto) 9.2 H 0.0-8.0 % Basophils (%) (Auto) 0.4 0.0-5.0 % Neutrophils # (Auto) 2.3 1.8-7.7 K/uL Lymphocytes # (Auto) 1.6 1.0-4.8 K/uL Monocytes # (Auto) 0.7 0.1-1.0 K/uL Eosinophils # (Auto) 0.48 0.00-0.70 K/uL Basophils # (Auto) 0.02 0.00-0.20 K/uL Absolute Immature Granulocyte (auto 0.06 0-1 K/uL Nucleated Red Blood Cells 0.4 H 0.0-0.19 % Chemistry Labs: Test 11/08/24 01:39 Range/Units Sodium Level 142 136-145 mmol/L Potassium Level 3.8 3.5-5.1 mmol/L Chloride Level 109 101-111 mmol/L Carbon Dioxide Level 27 21-32 mmol/L Blood Urea Nitrogen 21 H 7-18 mg/dL Creatinine 1.4 H 0.5-1.0 mg/dL Glomerular Filtration Rate Calc 37 >90 mL/min Random Glucose 98 70-105 mg/dL Total Calcium 8.2 L 8.5-10.1 mg/dL Total Bilirubin 0.7 0.2-1.0 mg/dL Aspartate Amino Transf (AST/SGOT) 14 10-37 U/L Alanine Aminotransferase (ALT/SGPT) 14 12-78 U/L Alkaline Phosphatase 81 50-136 U/L Total Protein 5.3 L 6.0-8.3 g/dL Albumin 2.7 L 3.5-5.0 g/dL Coagulation Labs: Test 11/09/24 04:02 Range/Units Activated Partial Thromboplast Time 52.4 H 26.3-35.5 SEC DIAGNOSTICS / RADIOLOGY RESULTS: [ ] PLAN NEURO: Minimize central acting medications as possible. Maintain fall precautions, adequate lighting during the day PULMONARY: Supplemental 02 as needed. Maintain aspiration precautions at all times Maintain O2 sats above 92% CARDIOVASCULAR: Follow hemodynamics. Vital signs per facility protocol Consult cardiology Consult CV surgery Heparin drip per protocol Telemetry monitoring GI & NUTRITION: Continue with nutritional support. Continue stool softeners and laxatives as needed. Heart healthy diet KIDNEYS & ELECTROLYTES: Strict monitoring of intake, output and overall fluid balance. Avoid nephrotoxic medications to the extent possible. Medications to be dosed according to renal function. Monitor electrolytes and replace as needed ENDOCRINE: Maintain blood glucose between 100-180 at all times. Hypoglycemia protocol in place INFECTIOUS DISEASE: Trend temperature, WBC and procalcitonin level Follow cultures, deescalate antibiotics as soon as possible. Panculture if new onset fever Cover for community-acquired pneumonia empirically Doxycycline Rocephin ONCOLOGY/HEMATOLOGY/COAGULATION: Monitor for s/s of bleeding Monitor hemoglobin, coagulation studies as needed SKIN: Pressure ulcer prevention per facility protocol Specialty mattress ORTHO/REHAB: Continue PT/OT Prophylaxis: Continue GI and DVT prophylaxis Code Status: Full Resuscitation Disposition: Home once cleared by cardiology Total time spent greater than 30 minutes. ATTESTATION BY PHYSICIAN I have evaluated the patient chart, medical records, and spoke with appropriate staff. I reviewed the documentation, medical decision making, and treatment plan as noted by the mid-level provider above. I agree with the findings and plan of care. Ricardo Macedo MD, ECTOR N LISBET Nov 09, 2024 10:38
[2024-11-09 11:00] VITALS: BP 133/56; PULSE 70; RESP 17; TEMP 98.7
--- NOTE | 2024-11-09 15:35 | PN ---
[facility] CARDIOLOGY PROGRESS NOTE Cardiology progress note dictated for Kalani Pulido MD Date Patient Seen: Nov 09, 2024 Interval History: The patient was initially evaluated as an outpatient for chest pain. She was scheduled for a 2D echo Lexiscan Cardiolite stress test and D-dimer test. Her D- dimer test was abnormal and she was referred for emergent CT pulmonary angiogram with PE protocol. There was no evidence of pulmonary embolism but the study did demonstrate thrombus in the descending aorta just beyond the left subclavian artery. Differential includes thrombus versus an intramural hematoma. 2D echo has showed a well-preserved ejection fraction greater than 55% with grade 1 diastolic left ventricular dysfunction. There was no evidence of mural thrombus. The patient has moderate aortic stenosis. No pericardial effusion. Sedimentation rate is 20. Suggesting this is not aortitis. DAYANA rheumatoid factors are pending. Telemetry is normal sinus rhythm with heart rates in the 60s to 80s range. She denies chest pain, chest pressure, palpitations, dizziness, or shortness of breath. Physical Examination: GENERAL: No acute distress. HEAD: Normal with no signs of head trauma. EYES: PERRLA, EOMI, conjunctiva and sclera normal. NECK: Supple without JVD. There is no tenderness, lymphadenopathy, or masses. No thyromegaly. Normal carotid upstrokes without bruits. LUNGS: Crackles to bilateral bases. HEART: Normal rate and rhythm. Normal S1 and S2. 2/6 SANTOS that radiates to the carotids. VASC: BLE with brown discoloration and 2 to 3+ pitting edema. EXT: No clubbing or cyanosis . NEURO: Awake, alert, and oriented x3. No focal neurological deficits noted. Laboratory: Hematology Labs: Test 11/09/24 04:02 11/08/24 01:39 Range/Units Hemoglobin 7.9 L 12.0-16.0 g/dL Hematocrit 24.7 L 36-48 % White Blood Count 5.2 4.8-10.8 K/uL Red Blood Count 2.61 L 4.00-5.50 MIL/uL Mean Corpuscular Volume 90.4 79-99 fL Mean Corpuscular Hemoglobin 29.5 27.0-33.0 pg Mean Corpuscular Hemoglobin Concent 32.6 32.0-36.0 g/dL Red Cell Distribution Width 22.7 H 11.0-15.5 % Platelet Count 350 130-400 K/uL Mean Platelet Volume 11.9 H 7.5-10.5 fL Immature Granulocyte % (Auto) 1.2 H 0-1 % Neutrophils (%) (Auto) 44.7 40.0-77.0 % Lymphocytes (%) (Auto) 31.6 21.0-51.0 % Monocytes (%) (Auto) 12.9 3.0-13.0 % Eosinophils (%) (Auto) 9.2 H 0.0-8.0 % Basophils (%) (Auto) 0.4 0.0-5.0 % Neutrophils # (Auto) 2.3 1.8-7.7 K/uL Lymphocytes # (Auto) 1.6 1.0-4.8 K/uL Monocytes # (Auto) 0.7 0.1-1.0 K/uL Eosinophils # (Auto) 0.48 0.00-0.70 K/uL Basophils # (Auto) 0.02 0.00-0.20 K/uL Absolute Immature Granulocyte (auto 0.06 0-1 K/uL Nucleated Red Blood Cells 0.4 H 0.0-0.19 % Chemistry Labs: Test 11/08/24 01:39 Range/Units Sodium Level 142 136-145 mmol/L Potassium Level 3.8 3.5-5.1 mmol/L Chloride Level 109 101-111 mmol/L Carbon Dioxide Level 27 21-32 mmol/L Blood Urea Nitrogen 21 H 7-18 mg/dL Creatinine 1.4 H 0.5-1.0 mg/dL Glomerular Filtration Rate Calc 37 >90 mL/min Random Glucose 98 70-105 mg/dL Total Calcium 8.2 L 8.5-10.1 mg/dL Total Bilirubin 0.7 0.2-1.0 mg/dL Aspartate Amino Transf (AST/SGOT) 14 10-37 U/L Alanine Aminotransferase (ALT/SGPT) 14 12-78 U/L Alkaline Phosphatase 81 50-136 U/L Total Protein 5.3 L 6.0-8.3 g/dL Albumin 2.7 L 3.5-5.0 g/dL Coagulation Labs: Test 11/09/24 04:02 Range/Units Activated Partial Thromboplast Time 52.4 H 26.3-35.5 SEC Diagnostics / Radiology: Echocardiogram 11/05/2024 Conclusion The LVEF is > 55%. Borderline concentric left ventricular hypertrophy. Stage I diastolic dysfunction. The left atrium is severely dilated. LASVI 56mL/m. There is mild to moderate Calculated aortic valve area is 1.1 cm2 with maximum pressure gradient of 34 mmHg and mean pressure gradient of 20 mmHg. aortic stenosis. Impression and Plan: 1. 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 She had no documented atrial arrhythmias and no mural thrombus was noted on echo. 2. Myelodysplasia 3. Elevated D-dimer with negative CTA for pulmonary embolism 4. Dyslipidemia 5. History of negative Cardiolite stress test 2019 6. Moderate aortic stenosis with LV ejection fraction of greater than 55% by echo this admission 7. Recent lumbar laminectomy September 2024 8. Chronic kidney disease stage IIIB 9. Anemia s/p 3 PRBC transfusions Thrombus versus intramural hematoma of the descending aorta just beyond the arch presenting as chest pain. She had no documented atrial arrhythmias and no mural thrombus was noted on echo. -Continue Atorvastatin 80 mg nightly and start Eliquis 2.5mg BID -The patient admitted she does not have medication insurance. She was advised to visit the [facility] on Monday to obtain samples of Eliquis. -Follow-up with Dr. Lukasz Lima in 7-10 days after discharge Lexiscan Cardiolite done on 11/08/2024 is pending to be read Dr. Dev Givens and Dr. Ankit Pulido are not certified to read Lexiscan stress test. -The patient will receive a call on Monday to obtain Lexiscan stress test results. The patient has been seen in consultation by Cardiothoracic surgery and recommended a MRI with blood pressure control until it can be performed. In addition Dr. Macedo is reviewing the images to make recommendations as to whether or not the patient should have intervention on aortic versus anticoagulation. -Continue Imdur 30mg daily and Lasix 20 mg daily [facility] Nov 09, 2024 15:35
--- NOTE | 2024-11-09 15:38 | NUR ---
Dr. Rick communication Per Dr. Rick, if Lexiscan scan results are normal, patient may be cleared for discharge from cardiovascular standpoint.
[2024-11-09] MEDS ORDERED: APIX2.5T PO (15:55)
[2024-11-09] MEDS ORDERED: ATOR40TA69 PO (15:56)
--- NOTE | 2024-11-09 17:24 | HMCSR ---
APPROVED REPORT Height: 5 ft 10in Weight: 209 lbs TEST INDICATIONS Chest Pain The imaging protocol used to acquire images was Rest Tc-99m/stress Tc-99m 1 day Consent: The procedure was explained and understood by the patient. Informerd consent was witnessed Solo Perez RN First, low dose rest was performed then high dose stress. RESTING DATA: The resting ekg shows: NSR Rest SPECT myocardial perfusion imaging was performed in supine position minutes following the intra venous injection of 10 mCi of Tc-99 Sestamibi. Time of rest injection: 06:55: Date: 11/08/2024 PHARMACOLOGIC STRESS: Pharmacologic stress test was performed by injecting regadenoson 0.4 mg IV push followed by the intra venous injection of 27 mCi of Tc-99 Sestamibi. Time of stress injection: 09:40: Date: 11/08/2024 Heart Rate at time of stress injection: 64 bpm. The images were gated to evaluate regional wall motion and calculate left ventricular ejection fracti on. STRESS DETAILS Reason for Termination: Infusion complete Stress Symptoms: Dyspnea Max HR Achieved: 88 bpm % of APMHR Achieved: 77 Max Blood Pressure: 176/67 mmHg Stress ECG: NSR Study quality was fair. Lung uptake was Normal. Artifact: breast and diaphragmatic artifact LEFT VENTRICLE Size: The left ventricular size is normal. Systolic Function:The left ventricular systolic function is normal. Wall Motion: No regional wall motion abnormalities noted. The left ventricular ejection fraction was calculated to be 56%.TID = 1.23. LV PERFUSION There is severe decreased RTU noted globally throughout the myocardium on the stress images and when compared to rest images suggest complete reversibility IMPRESSION Severely abnormal pharmacologic nuclear stress test. Global LV Function: Normal Stress ECG Summary: Normal LV Perfusion Summary: Abnormal Conclusion Severely abnormal pharmacologic nuclear stress test for global ischemia throughout in the setting of increased TID ratio of 1.23 Global LV Function: Normal Stress ECG Summary: Normal LV Perfusion Summary: Severely abnormal High risk scan
[2024-11-09] MEDS ORDERED: Isosorbide Mono 30MG Sr Tab PO (19:46)
[2024-11-09] MEDS ORDERED: ISOS30TA92 PO (19:48)
--- NOTE | 2024-11-09 19:58 | DS ---
[facility] DISCHARGE SUMMARY Date Patient Seen: Nov 09, 2024 Time of Visit: 19:49 Supervising Physician: [ Dr Macedo Primary Care Physician: Jaya Ortiz MD Outpatient Specialists: Dr Lima Inpatient Consults: Dr Manny Soto, Dr Cordoba PROBLEM LIST: Acute hypoxic respiratory failure, POA resolved Acute on chronic anemia secondary to myelodysplastic syndrome,POA stable Thrombocytosis, POA, Thrombus vs mass lesion on descending aortic, POA Right lower community-acquired pneumonia, POA resolved MOUSTAPHA on CKD stage III, POA resolved Osteoarthritis Pulmonary fibrosis COPD Spinal stenosis status post lumbar laminectomy September of 2024 Obesity BMI of 29.4 HOSPITAL COURSE: HPI (per admitting provider) This is the case of a 89-year-old female with a past medical history of COPD, pulmonary fibrosis, ulcer arthritis, myelodysplastic, heart disease recently had a lumbar laminectomy in [facility] and was sent to inpatient rehab for several weeks discharged approximately one week ago. She went to the heart clinic for follow up and was found to have an elevated D-dimer. She was sent to the emergency department for evaluation of possible PE. On arrival to the emergency department patient had a temperature 99.7 heart rate in the 80s respiratory rate of 16 blood pressure 139/46 with O2 sat of 94% on room air. Chest x-ray shows bilateral pulmonary infiltrates seen suggestive of pulmonary vascular congestion with possible superimposed pneumonitis. On CT of the chest per PE protocol there was no CT evidence of acute pulmonary embolism aortic dissection. There is soft tissue filling defect noted within the descending thoracic aorta measuring 2 cm x 1.5 cm posteriorly in weekly below the aortic arch. On ultrasound of both lower extremity no evidence of DVT. No evidence of abdominal aortic aneurysm seen on abdominal ultrasound. Re markable labs for WBCs of 5.7 RBCs 1.87 hemoglobin of 6.4/20.7 with MCV of 102 MCHC 30.9 platelet count [id number], creatinine is 1.4 GFR of 37 with a BUN of 21. TIBC 181 % saturation 64. Patient's familiar with [employer] Dr. Greenfield for her myelodysplastic disease and we are consulted for acute anemia. Per Hematology it is okay to anticoagulate if needed and we will transfuse 2 units of PRBCs. We will trend hemoglobin and hematocrit every 6 hours and transfuse 1 unit PRBCs for hemoglobin less than 7. We will consult cardiology and CV surgery for eval and recommendations. 11/06/24-patient is found awake alert and oriented x3 hemodynamically stable with a blood pressure of 142/62 heart rate in the 80s respiratory rate of 18 saturating 92% on room air and afebrile. Hemoglobin and hematocrit has been stable this morning H&H 7.5/23.4 status post transfusion of 2 units of PRBCs ye day. Platelet count [id number]. APTT therapeutic at 64.3 this morning continues on a heparin drip. Chemistries sodium 136 BUN 23 creatinine 1.4 and GFR of 27 which is similar to yesterday. Albumin 2.7 total protein 5.3. Cardiology is following who recommend high-dose statin and CV surgery consult pending. 11/07 Patient is an 84 year old lady admitted due to elevated D-dimer found with an aortic thrombus place on heparin drip, found with Hb of 6.9 plan is to be transfuse 1 u of PRBC she is follow by dr Dexter / Dr Conti pending for Laxiscan , patient had an episode of anxiety this morning and wants to go home as per nurse report right now she is more calm not in distress, we will follow up cardiothoracic recommendations. 11/08 Patient is awake, alert, well oriented, able to walk , not in distress, barely finished her Laxiscan, pending results and CT recommendations otherwise, respiratory sexton, doing fine, not SOB, she is s/p PRBC, plan is to continue with heparin drip, and add Cefepime 1 gr IV every 12 hrs for only 48 hours no new issues reported. 11/09 - patient is seen and evaluated at the bedside. Patient is accompanied by her daughter. Patient is sitting up in bed awake alert and oriented with no signs of any acute distress. Patient had a Lexiscan stress test performed yesterday and currently pending results. Patient reports to go home and denies chest discomfort, chest pain or dyspnea with exertion. Patient has been cleared for discharge from Dr. Cordoba standpoint. Recommended follow up in clinic as outpatient. Labs labs show H&H of 7.9/24.7 this morning. We will await for Lexiscan stress test results. Plan to DC home once cleared from Cardiology. Was notified by nursing that cardiology has cleared the patient for discharged. Pt has been advised to follow up with Cardiology Monday morning in order to obtain Eliquis samples as the patient does not have medication insurance and unable to afford Eliquis. The Lexiscan stress test results are still pending to be read. Unfortunately Dr. Dev Givens and Dr. Ankit Pulido are not certified to read Lexiscan stress test. Cardiology will notify the patient via telephone for the stress test results. Pt has been advised to continue cardioprotective medications as documented below from cardiology recom mendations. Pt to follow up with Dr. Cordoba in 1-2 weeks. Pt to follow up with PCP in 1-2 days. Vital signs stable. Labs WNL. Med rec has been completed. New RX were sent to patient's pharmacy. Education regarding current diagnosis has been provided to the patient. All questions answered. Pt to be discharged home. 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 She had no documented atrial arrhythmias and no mural thrombus was noted on echo. -Continue Atorvastatin 80 mg nightly and start Eliquis 2.5mg BID -The patient admitted she does not have medication insurance. She was advised to visit the [facility] on Monday to obtain samples of Eliquis. -Follow-up with Dr. Lukasz Lima in 7-10 days after discharge Lexiscan Cardiolite done on 11/08/2024 is pending to be read Dr. Dev Givens and Dr. Ankit Pulido are not certified to read Lexiscan stress test. -The patient will receive a call on Monday to obtain Lexiscan stress test results. The patient has been seen in consultation by Cardiothoracic surgery and r ecommended a MRI with blood pressure control until it can be performed. In addition Dr. Maceod is reviewing the images to make recommendations as to whether or not the patient should have intervention on aortic versus anticoagulation. -Continue Imdur 30mg daily and Lasix 20 mg daily PROCEDURES: as mentioned above DISCHARGE MEDICATIONS: See DC med list Pt hemodynamically stable and afebrile at time of discharge. PCP notified of patients admission, hospital course and discharge. New Medications: Isosorbide Mononitrate (Isosorbide Mononitrate ER) 30 Mg Tab.er.24h 1 TAB PO DAILY for 30 Days, #30 TAB 0 Refills [Isosorbide Lassen 30MG Sr Tab] () 30 MG TAB.ER.24H 30 MG PO DAILY, #30 TAB 0 Refills Continued Medications: Apixaban (Eliquis) 2.5 Mg Tablet 1 TAB PO BID for 30 Days, #60 TAB 0 Refills Atorvastatin Calcium (Lipitor) 40 Mg Tablet 1 TAB PO HS for 30 Days, #30 TAB 0 Refills Cyanocobalamin (Vitamin B-12) (Vitamin B-12) 1,000 Mcg Capsule 1000 MCG PO DAILY, CAP Docusate Sodium (Colace) 100 Mg Capsule 100 MG PO HS, CAP Multivitamin/Iron/Folic Acid (Centrum Women Tablet) 18 Mg Iron-400 Mcg Tablet 1 EACH PO DAILY, TAB Polyethylene Glycol 3350 (Miralax) 17 Gram Powd.pack 17 GM PO HS Discontinued Medications: Furosemide (Furosemide) 20 Mg Tablet 20 MG PO DAILY, TAB Isosorbide Mononitrate (Isosorbide Mononitrate ER) 30 Mg Tab.er.24h 30 MG PO DAILY, TAB PHYSICAL EXAM: GENERAL: alert, weak, awake oriented x 3 HEENT: EOMI, Sclera non icteric, moist mucosa NECK: Supple, no JVD, trachea midline LUNGS: Clear breath sounds bilaterally. No wheezes HEART: Regular rate and rhythm. Normal S1 and S2, without murmurs ABD: Abdomen soft, nontender. Bowel sounds present EXT: No clubbing cyanosis, bilateral plus one pitting edema to lower extremities, right 3rd toe with brown/purple ecchymosis NEURO: Alert and oriented to person, follows commands FOLLOW-UP: Follow-up with PCP in 2-3 days Follow up with cardiology Monday for Eliquis samples Follow up with Dr Cordoba in 1-2 weeks Follow up with [facility] for MRI to be arranged outpt. RECOMMENDATIONS: See Discharge Instructions This case was seen and discussed with my supervising physician. More than 30 minutes spent on discharge process, including evaluation of the patient, discussion with nursing staff, medication reconciliation and follow-up appointments ATTESTATION BY PHYSICIAN I have evaluated the patient chart, medical records, and spoke with appropriate staff. I reviewed the documentation, medical decision making, and treatment plan as noted by the mid-level provider above. I agree with the findings and plan of care. Ricardo Macedo MD, ECTOR N NP Nov 09, 2024 19:58
[2024-11-09] MEDS ORDERED: APIXaban 2.5 MG TABLET PO SCH (21:00)
--- NOTE | 2024-11-14 00:24 | PN ---
SUBJECTIVE: This is a nice 84-year-old lady admitted to the hospital with chest pain. CT scan demonstrated an intraaortic hematoma, which is distal to the subclavian artery and appears to be contained. I have reviewed the images and discussed with Dr. Hellen hernandez in the process of assessing the possibility of following with an Endo stent. In the meantime, a Lexiscan was performed. The patient demonstrates that she has severe ischemia. Therefore, a cardiac catheterization was recommended. RECOMMENDATIONS: The patient should stay in the hospital, undergo a cardiac catheterization and assess the possibility of percutaneous versus surgical revascularization as needed. TID: [id number] RECEIPT: [id number]
== END 2024-11-09 17:00 | disposition home or self-care (01) | DRG 811 ==
LOC: EDH 13:25 → EDHIP 20:04 → 2DH 11-06 22:44
PROVIDERS: ADMIT Internal Medicine; ATTEND Internal Medicine
PROC: 30233N1 Transfusion of Nonautologous Red Blood Cells into Peripheral Vein, Percutaneous Approach (ICD-10-PCS; 2024-11-05)
PROC: 4A12XM4 Monitoring of Cardiac Stress, External Approach (ICD-10-PCS; principal; 2024-11-08)
PROC: 3E073KZ Introduction of Other Diagnostic Substance into Coronary Artery, Percutaneous Approach (ICD-10-PCS; 2024-11-08)
DX: D46.9 Myelodysplastic syndrome, unspecified (principal); J18.9 Pneumonia, unspecified organism; J96.01 Acute respiratory failure with hypoxia; J44.0 Chronic obstructive pulmonary disease with (acute) lower respiratory infection; N17.9 Acute kidney failure, unspecified; N81.4 Uterovaginal prolapse, unspecified; D63.0 Anemia in neoplastic disease; I25.10 Atherosclerotic heart disease of native coronary artery without angina pectoris; J84.10 Pulmonary fibrosis, unspecified; D75.839 Thrombocytosis, unspecified; N18.32 Chronic kidney disease, stage 3b; E66.9 Obesity, unspecified; Z96.653 Presence of artificial knee joint, bilateral; E78.5 Hyperlipidemia, unspecified; Z68.29 Body mass index [BMI] 29.0-29.9, adult; I35.0 Nonrheumatic aortic (valve) stenosis; Z96.641 Presence of right artificial hip joint; Z59.71 Insufficient health insurance coverage; Z79.01 Long term (current) use of anticoagulants; Z79.899 Other long term (current) drug therapy; Z88.1 Allergy status to other antibiotic agents; Z88.8 Allergy status to other drugs, medicaments and biological substances
CPT/HCPCS: 36415; 36430; 71045; 71270; 76775; 78452; 80048; 80053; 82550; 82948; 83540; 83550; 83605; 83880; 84484; 85014; 85018; 85025; 85378; 85610; 85651; 85730; 86038; 86215; 86235; 86431; 86850; 86900; 86901; 86923; 87426; 87804; 87880; 93005; 93017; 93306; 93970; 99285; A9500; G0378; J0692; J1644; J2470; J2543; J2785; J3490; P9016; Q9967

== ENCOUNTER → 2024-11-04 | Outpatient (CLI) | payer MEDICARE ==
[~2024-11-04] MED LIST changes: -ACET-2743 PO; +CYAN-35 PO; +DOCU-116 PO; +FURO20TA4 PO; +ISOS30TA92 PO; -LACT1CAP69 PO; -MECO10005 PO; -MELO10CA3 PO; -MULT-1258 PO; +MULT-1290 PO; -SENN-309 PO
== END | disposition home or self-care (01) ==
LOC: LAB 10:25
PROVIDERS: ATTEND Internal Medicine Cardiovascular Disease
DX: I82.403 Acute embolism and thrombosis of unspecified deep veins of lower extremity, bilateral (principal)
CPT/HCPCS: 36415; 85378